=== PATIENT | female | born 1945 | race Two or more races ===

== ENCOUNTER 2018-02-23 23:03 | Inpatient (IN) | payer MEDICARE, OTHER ==
[~2018-02-23] VITALS: Ht 162.6 cm; Wt 98.9 kg
--- NOTE | 2018-02-23 23:25 | Emergency Room Report ---
History of Present Illness General Chief Complaint: Abnormal Labs Source: Medical Record, EMS Present Illness HPI This is a 72-year-old female coming from a halfway. She has multiple medical problem including tracheostomy and feeding tube. She presents with chief complaint of abnormal lab with elevated BUNs of 72. This is based on the lab done today. She has no complaint of fever chills but no nausea no vomiting. Per EMS, nursing staff said increasing edema to the upper hands. Patient is a DO NOT RESUSCITATE. Allergies: Coded Allergies: No Known Allergies (Unverified , 02/23/18) Patient History Past Medical History: see triage record, old chart reviewed Past Surgical History: other Social History: Denies: smoking Now: No Immunizations: other Reviewed Nursing Documentation: PMH: Agreed; PSxH: Agreed Nursing Documentation-PMH Past Medical History: No History, Except For Hx Hypertension: Yes Hx Diabetes: Yes - Type 2 Hx Gastrointestinal Problems: Yes - G-tube, Dysphagia History Of Psychiatric Problem: No - Cellulitis BUE, Sacral wound Hx Neurological Problems: Yes - Anoxic Brain Damage Hx Cerebrovascular Accident: Yes Hx Seizures: Yes Review of Systems Eye: Denies: eye pain, blurred vision ENT: Denies: ear pain, nose congestion, throat swelling Respiratory: Denies: cough, shortness of breath Cardiovascular: Denies: chest pain, palpitations Gastrointestinal: Denies: abdominal pain, diarrhea, nausea, vomiting Musculoskeletal: Denies: back pain, joint pain Skin: Denies: rash Neurological: Denies: headache, numbness Endocrine: Denies: increased thirst, increased urine Hematologic/Lymphatic: Denies: easy bruising All Other Systems: negative except mentioned in HPI Physical Exam Vital Signs Date Time Temp Pulse Resp B/P (MAP) Pulse Ox O2 Delivery O2 Flow Rate FiO2 02/23/18 23:07 68 17 133/68 98 Trach Collar 32 vitals unremarkable Sp02 EP Interpretation: reviewed, normal General Appearance: well appearing, no apparent distress, alert, obese Head: normocephalic, atraumatic Eyes: bilateral eye PERRL, bilateral eye EOMI ENT: hearing grossly normal, normal pharynx Neck: full range of motion, supple, no meningismus, tracheotomy Respiratory: chest non-tender, lungs clear, normal breath sounds Cardiovascular #1: regular rate, rhythm, no murmur Gastrointestinal: normal bowel sounds, non tender, no mass, no organomegaly, no bruit, non-distended Musculoskeletal: back normal, swelling - to bilateral hands. No warmth. Psychiatric: mood/affect normal Skin: warm/dry Medical Decision Making Diagnostic Impression: Primary Impression: Dehydration Additional Impressions: Prerenal azotemia UTI (urinary tract infection) Qualified Codes: N30.00 - Acute cystitis without hematuria Anemia Qualified Codes: D64.9 - Anemia, unspecified Proteinuria Qualified Codes: R80.9 - Proteinuria, unspecified ER Course Patient presents with abnormal lab with elevated BUN/creatinine ratio. No evidence of any bleeding. She looks dehydrated. Does have infection a urine an antibiotic started. Will admit for IV fluid and IV antibiotics. Lab Results Impression labs with elevated BUN EKG Diagnostic Results Rate: normal ST Segments: no acute changes Rhythm Strip Diag. Results Rhythm Strip Time: 01:18 EP Interpretation: yes Rate: 60 Rhythm: NSR, no PVC's, no ectopy Chest X-Ray Diagnostic Results Chest X-Ray Diagnostic Results : Chest X-Ray Ordered: Yes # of Views/Limited/Complete: 1 View Indication: Other EP Interpretation: Yes Interpretation: no consolidation, no effusion, no pneumothorax, no acute cardiopulmonary disease Impression: No acute disease Electronically Signed by: Joe Hutchinson MD Last Vital Signs Date Time Temp Pulse Resp B/P (MAP) Pulse Ox O2 Delivery O2 Flow Rate FiO2 02/23/18 23:07 68 17 133/68 98 Trach Collar 32 Status: improved Disposition: ADMITTED INPATIENT Condition: Serious JOE HUTCHINSON M.D. February 23, 2018 23:25
[2018-02-23 23:38] LABS: BASOPHILS % (AUTO) 1.1 % (0.0-2.0); EOSINOPHILS % (AUTO) 1.4 % (0.0-3.0); HEMATOCRIT 32.3 % (37.0-47.0); HEMOGLOBIN 11.2 G/DL (12.0-16.0); LYMPHOCYTES % (AUTO) 29.2 % (20.0-45.0); MEAN CORPUSCULAR VOLUME 93 FL (80-99); MONOCYTES % (AUTO) 5.4 % (1.0-10.0); NEUTROPHILS % (AUTO) 62.9 % (45.0-75.0); PLATELET COUNT 177 K/UL (150-450); RED BLOOD COUNT 3.48 M/UL (4.20-5.40); RED CELL DISTRIBUTION WIDTH 14.6 % (11.6-14.8); WHITE BLOOD COUNT 7.8 K/UL (4.8-10.8)
[2018-02-23 23:49] LABS: ANION GAP 9 mmol/L (5-15); BLOOD UREA NITROGEN 81 mg/dL (7-18); CARBON DIOXIDE 30 MMOL/L (21-32); CHLORIDE 96 MMOL/L (98-107); CREATININE 1.3 MG/DL (0.55-1.30); POTASSIUM 3.5 MMOL/L (3.5-5.1); SODIUM 135 MMOL/L (136-145)
[2018-02-23 23:52] LABS: APPEARANCE,URINE SLIGHTLY CLOUDY; BILIRUBIN, URINE NEGATIVE (NEGATIVE); COLOR,URINE YELLOW; GLUCOSE, URINE (UA) NEGATIVE (NEGATIVE); KETONES,URINE NEGATIVE (NEGATIVE); LEUKOCYTE ESTERASE ,URINE 3+ (NEGATIVE); NITRITE,URINE NEGATIVE (NEGATIVE); PROTEIN,URINE 2+ (NEGATIVE); UROBILINOGEN,URINE NORMAL MG/DL (0.0-1.0)
[2018-02-23 23:54] LABS: PH,URINE 8 (4.5-8.0)
[2018-02-23 23:54] LABS: ALANINE AMINOTRANSFERASE 19 U/L (12-78); ALBUMIN 2.1 G/DL (3.4-5.0); ALBUMIN/GLOBULIN RATIO 0.4 (1.0-2.7); ALKALINE PHOSPHATASE 207 U/L (46-116); ASPARTATE AMINO TRANSFERASE 37 U/L (15-37); BILIRUBIN,TOTAL 0.3 MG/DL (0.2-1.0)
[2018-02-24] VITALS (8 sets, daily range): BP systolic 102–159; BP diastolic 54–109
[2018-02-24] MEDS ORDERED: NOVOLOG100 UNIT/3 SUBQ (00:02)
[2018-02-24] MEDS ORDERED: CRANBERRY450 M3 GT (00:02)
[2018-02-24] MEDS ORDERED: MULTIVITAMINS1 EAC2 GT (00:02)
[2018-02-24] MEDS ORDERED: BISACODYL5 MG RECTAL (00:02)
[2018-02-24] MEDS ORDERED: BENADRYL25 MG GT (00:02)
[2018-02-24] MEDS ORDERED: KEPPRA1000 MG GT (00:02)
[2018-02-24] MEDS ORDERED: IPRATROPIU0.2 MG/1 M HHN (00:02)
[2018-02-24] MEDS ORDERED: FLEET ENEMA133 ML RECTAL (00:02)
[2018-02-24] MEDS ORDERED: FERROUS SULFAT325 MG GT (00:02)
[2018-02-24] MEDS ORDERED: GLUCAGEN1 M1 IJ (00:02)
[2018-02-24] MEDS ORDERED: EPOGEN2000 UNIT/ SUBQ (00:02)
[2018-02-24] MEDS ORDERED: ZOFRAN4 M3 GT (00:02)
[2018-02-24] MEDS ORDERED: VALPROIC A250 MG/5 M GT (00:02)
[2018-02-24] MEDS ORDERED: LEVEMIR FL100 UNIT/1 SUBQ (00:02)
[2018-02-24] MEDS ORDERED: MILK OF MA400 MG/51 GT (00:02)
[2018-02-24] MEDS ORDERED: ACETAMINOP160 MG/5 M GT (00:02)
[2018-02-24] MEDS ORDERED: VITAMIN C500 MG/11 GT (00:02)
--- NOTE | 2018-02-24 00:27 | Diagnostic Imaging Report ---
EXAM: XR Chest, 1 View CLINICAL HISTORY: SOB TECHNIQUE: Frontal view of the chest. COMPARISON: No relevant prior studies available. FINDINGS/IMPRESSION: Tracheostomy. Patient rotated. Heart size likely within normal limits given technique. Lung base opacities. Likely atelectasis. Correlate for small amount of basilar infiltrate.
[2018-02-24] MEDS ORDERED: cefTRIAXone 1 GM in NS 55 ML IVPB ONE (00:30)
[2018-02-24] MEDS ORDERED: Valproic Acid 250mg/5ml Liquid NG SCH (06:00)
[2018-02-24] MEDS ORDERED: Acetaminophen 650mg/20.3ml GT PRN (08:00)
[2018-02-24] MEDS ORDERED: Fleet's Enema 133ml RECTAL PRN (08:00)
[2018-02-24] MEDS ORDERED: DiphenhydrAMINE 25mg/10ml Elixir GT PRN (08:00)
[2018-02-24] MEDS ORDERED: Milk of Magnesia 30ml Ud ORAL PRN (08:00)
[2018-02-24] MEDS ORDERED: Vancomycin 1500mg IVPB ONE (08:30)
[2018-02-24] MEDS ORDERED: Piperacillin/Tazobactam 3.375 GM in D5W 110 ML IVPB SCH (08:30)
[2018-02-24] MEDS: D5NS 1,000 ML IV SCH ×2 (08:33→21:05)
[2018-02-24 08:35] LABS: BASOPHILS % (AUTO) 1.1 % (0.0-2.0); EOSINOPHILS % (AUTO) 1.4 % (0.0-3.0); HEMATOCRIT 33.4 % (37.0-47.0); HEMOGLOBIN 11.1 G/DL (12.0-16.0); LYMPHOCYTES % (AUTO) 28.7 % (20.0-45.0); MEAN CORPUSCULAR VOLUME 93 FL (80-99); MONOCYTES % (AUTO) 7.2 % (1.0-10.0); NEUTROPHILS % (AUTO) 61.5 % (45.0-75.0); PLATELET COUNT 183 K/UL (150-450); RED BLOOD COUNT 3.59 M/UL (4.20-5.40); RED CELL DISTRIBUTION WIDTH 14.5 % (11.6-14.8); WHITE BLOOD COUNT 7.1 K/UL (4.8-10.8)
[2018-02-24 08:42] LABS: ANION GAP 9 mmol/L (5-15); BLOOD UREA NITROGEN 72 mg/dL (7-18); CALCIUM 9.8 MG/DL (8.5-10.1); CARBON DIOXIDE 29 MMOL/L (21-32); CHLORIDE 103 MMOL/L (98-107); CREATININE 1.1 MG/DL (0.55-1.30); POTASSIUM 3.5 MMOL/L (3.5-5.1); SODIUM 141 MMOL/L (136-145)
[2018-02-24] MEDS ORDERED: Ferrous Sulfate 300 MG/5 ML UDC NG SCH (09:00)
[2018-02-24] MEDS ORDERED: Ascorbic Acid 500mg tab GT SCH (09:00)
[2018-02-24] MEDS ORDERED: Heparin 5000 units/ml inj SUBQ SCH (09:00)
[2018-02-24] MEDS: Piperacillin/Tazobactam 3.375 GM in D5W 110 ML IVPB SCH ×2 (09:58→17:09)
--- NOTE | 2018-02-24 10:24 | Consultation ---
Consult Note Consult Note 72-year-old female coming [facility] a [facility] for worsening renal function. She has multiple medical problem including tracheostomy and feeding tube and has worsening edema and renal function and unable to manage at the SNF. She presents with worsening renal function. She is unable to give any history and chronically bed bound. Per EMS, nursing staff said increasing edema and erythema to the upper hands. Allergies: No Known Allergies (Unverified , 02/23/18) Past Medical History: respiratory failure, aspiration, cellulitis, renal failure, sacral wound, anoxia, CVA, diabetes, htn, seizures Past Surgical History: trach, GT Social History: SNF patient, bed bound Reviewed of systems: unable Physical WDWN NAD reduced breath sounds bilaterally without rhonchi or wheeze [id number] without MRG NABS nontender no HSM; GT no CC diffuse edema and erythema nonfocal, moribound trach Laboratory Tests Test 02/23/18 23:35 02/23/18 23:41 02/24/18 00:06 02/24/18 08:26 White Blood Count 7.8 K/UL (4.8-10.8) 7.1 K/UL (4.8-10.8) Red Blood Count 3.48 M/UL (4.20-5.40) L 3.59 M/UL (4.20-5.40) L Hemoglobin 11.2 G/DL (12.0-16.0) L 11.1 G/DL (12.0-16.0) L Hematocrit 32.3 % (37.0-47.0) L 33.4 % (37.0-47.0) L Mean Corpuscular Volume 93 FL (80-99) 93 FL (80-99) Mean Corpuscular Hemoglobin 32.3 PG (27.0-31.0) H 30.8 PG (27.0-31.0) Mean Corpuscular Hemoglobin Concent 34.8 G/DL (32.0-36.0) 33.1 G/DL (32.0-36.0) Red Cell Distribution Width 14.6 % (11.6-14.8) 14.5 % (11.6-14.8) Platelet Count 177 K/UL (150-450) 183 K/UL (150-450) Mean Platelet Volume 6.5 FL (6.5-10.1) 6.3 FL (6.5-10.1) L Neutrophils (%) (Auto) 62.9 % (45.0-75.0) 61.5 % (45.0-75.0) Lymphocytes (%) (Auto) 29.2 % (20.0-45.0) 28.7 % (20.0-45.0) Monocytes (%) (Auto) 5.4 % (1.0-10.0) 7.2 % (1.0-10.0) Eosinophils (%) (Auto) 1.4 % (0.0-3.0) 1.4 % (0.0-3.0) Basophils (%) (Auto) 1.1 % (0.0-2.0) 1.1 % (0.0-2.0) Sodium Level 135 MMOL/L (136-145) L 141 MMOL/L (136-145) Potassium Level 3.5 MMOL/L (3.5-5.1) 3.5 MMOL/L (3.5-5.1) Chloride Level 96 MMOL/L (98-107) L 103 MMOL/L (98-107) Carbon Dioxide Level 30 MMOL/L (21-32) 29 MMOL/L (21-32) Anion Gap 9 mmol/L (5-15) 9 mmol/L (5-15) Blood Urea Nitrogen 81 mg/dL (7-18) H 72 mg/dL (7-18) H Creatinine 1.3 MG/DL (0.55-1.30) 1.1 MG/DL (0.55-1.30) Estimat Glomerular Filtration Rate 40.5 mL/min (>60) 49.1 mL/min (>60) Glucose Level 187 MG/DL (74-106) H 84 MG/DL (74-106) # Lactic Acid Level 2.00 mmol/L (0.66-2.22) 1.60 mmol/L (0.66-2.22) Calcium Level 10.0 MG/DL (8.5-10.1) 9.8 MG/DL (8.5-10.1) Total Bilirubin 0.3 MG/DL (0.2-1.0) Aspartate Amino Transf (AST/SGOT) 37 U/L (15-37) Alanine Aminotransferase (ALT/SGPT) 19 U/L (12-78) Alkaline Phosphatase 207 U/L (46-116) H Troponin I 0.000 ng/mL (0.000-0.056) Total Protein 7.6 G/DL (6.4-8.2) Albumin 2.1 G/DL (3.4-5.0) L Globulin 5.5 g/dL Albumin/Globulin Ratio 0.4 (1.0-2.7) L Urine Color Yellow Urine Appearance Slightly cloudy Urine pH 8 (4.5-8.0) Urine Specific Lafe 1.010 (1.005-1.035) Urine Protein 2+ (NEGATIVE) H Urine Glucose (UA) Negative (NEGATIVE) Urine Ketones Negative (NEGATIVE) Urine Occult Blood 4+ (NEGATIVE) H Urine Nitrite Negative (NEGATIVE) Urine Bilirubin Negative (NEGATIVE) Urine Urobilinogen Normal MG/DL (0.0-1.0) Urine Leukocyte Esterase 3+ (NEGATIVE) H Urine RBC 20-30 /HPF (0 - 2) H Urine WBC 20-30 /HPF (0 - 2) H Urine Squamous Epithelial Cells Few /LPF (NONE/OCC) Urine Amorphous Sediment Moderate /LPF (NONE) H Urine Bacteria Many /HPF (NONE) H Thyroid Stimulating Hormone (TSH) 6.517 uiU/mL (0.358-3.740) IMPRESSION respiratory failure diffuse edema renal failure cellulitis possible chronic encephalopathy trach gt PLAN vent as is resume meds renal evaluation manage fluid status skin care wound care nutrition protein supplementation impression, plan, and exam edited and reviewed in detail care discussed with Edinson Lyon MD February 24, 2018 10:24
--- NOTE | 2018-02-24 10:37 | Diagnostic Imaging Report ---
INDICATION: Increased BUN TECHNIQUE: Real time imaging of the kidneys is performed in sagittal and transverse projections. COMPARISON: None FINDINGS: The right kidney measures 9.2 cm, the left kidney is not seen. There is no evidence of hydronephrosis or solid mass lesions. No sonographic evidence of renal calculi. Pichardo catheter in place. IMPRESSION: Left kidney not seen, the right kidney is within normal. Pichardo catheter in place.
[2018-02-24] MEDS: NovoLOG Insulin Flexpen SUBQ SCH ×2 (11:30→16:30)
[2018-02-24] MEDS: Valproic Acid 250mg/5ml Liquid NG SCH ×2 (14:14→21:09)
--- NOTE | 2018-02-24 15:00 | History and Physical Report ---
DATE OF ADMISSION: 02/24/2018 CHIEF COMPLAINT: Abnormal laboratories. HISTORY OF PRESENT ILLNESS: The patient is an unfortunate 72-year-old female who has a history of chronic respiratory failure, toxic encephalopathy, and hypertension. She has a history of a chronic trach and a G-tube. She was transferred from a shelter facility with abnormal laboratories. Specifically, she has had an elevated BUN. On evaluation in the emergency room, her BUN was confirmed at 81. She also had evidence of urinary tract infection. She has been pancultured. She has been started on antibiotic therapy. She is now admitted for further evaluation and care. She is nonverbal at baseline. She is unable to provide any history. PAST MEDICAL HISTORY: As above. History of chronic kidney disease, seizure disorder. PAST SURGICAL HISTORY: Includes trach and a G-tube. CURRENT MEDICATIONS: Reconciled and reviewed. ALLERGIES: None. FAMILY HISTORY: None. SOCIAL HISTORY: There is no known history of tobacco, ethanol, or drugs. REVIEW OF SYSTEMS: Unobtainable. PHYSICAL EXAMINATION: VITAL SIGNS: Temperature 94.6, pulse 59, respirations 16, and blood pressure 102/54. GENERAL: The patient is a chronically ill-appearing female, in no apparent distress. She is nonverbal, does not follow commands. NECK: Supple. Trach site was clean and midline. HEART: Regular rate and rhythm. LUNGS: Clear. ABDOMEN: Soft, nontender, nondistended. EXTREMITIES: Without clubbing, cyanosis, or edema. LABORATORY DATA: Sodium 135, BUN 81, creatinine is 1.3, potassium 3.5. White count 8, hemoglobin 11, hematocrit 32, platelets 177,000. UA showed 20 to 30 WBCs with 3+ leukocyte esterase positive. Many bacteria. ASSESSMENT: This is a unfortunate female with history of anoxic encephalopathy, chronic respiratory failure, seizure disorder, chronic kidney disease, admitted with complaints of sepsis and azotemia. 1. Sepsis. 2. Azotemia. 3. Urinary tract infection. 4. Toxic encephalopathy. 5. History of seizure disorder. 6. Hypertension. PLAN: 1. IV hydration. 2. Continue outpatient medications. 3. Antibiotics for urinary tract infection. 4. Follow up pending cultures. 5. Continue vent support. 6. Respiratory treatments. 7. Continue G-tube feeds. Glynn King M.D. DR: AMMON JOB#: [id number] CC:
[2018-02-24] MEDS: Ferrous Sulfate 300 MG/5 ML UDC NG SCH (17:10)
--- NOTE | 2018-02-24 18:00 | Consultation ---
DATE OF CONSULTATION: 02/24/2018 CONSULTING PHYSICIAN: Harpal Pan M.D. REFERRING PHYSICIAN: Edinson Barton M.D. REASON FOR CONSULTATION: 1. Acute kidney injury. 2. Edema. HISTORY OF PRESENT ILLNESS: The patient is a 72-year-old, female, who is currently ventilatory dependent. She has undergone a previous tracheostomy and is dependent on mechanical ventilation. The patient also has a feeding tube. She was sent from her intermediate facility for evaluation and management of upper extremity edema and worsening renal function. Upon presentation, the patient had a creatinine of 1.3 with a BUN of 81. IV fluids were initiated. BUN has improved down to 71 with a creatinine of 1.1. The patient is nonverbal and no apparent distress. ALLERGIES: No known drug allergies. PAST MEDICAL HISTORY: 1. Respiratory failure, ventilatory-dependent. 2. Aspiration. 3. Cellulitis. 4. History of acute kidney injury. 5. Sacral wound. 6. Anoxia. 7. CVA. 8. Diabetes mellitus. 9. Hypertension. 10. Seizures. PAST SURGICAL HISTORY: 1. Tracheostomy. 2. G-tube. SOCIAL HISTORY: The patient is a intermediate facility resident and she is bedbound. No tobacco, alcohol or illicit drug use. FAMILY HISTORY: Noncontributory. REVIEW OF SYSTEMS: Cannot be obtained, as the patient is currently mechanical ventilatory dependent and nonverbal. PHYSICAL EXAM: GENERAL: The patient is awake, in no apparent distress. HEENT: Extraocular muscles intact. No lymphadenopathy noted. CARDIOVASCULAR: S1 and S2. No rubs or gallops. PULMONARY: Mild upper airway rhonchi. Fair air movement all lung ventura. ABDOMEN: Obese and nondistended with PEG tube noted. EXTREMITIES: 4+ pitting edema in right and left upper extremity with 1+ edema in the lower extremities. LABORATORY AND DIAGNOSTIC DATA: Labs dated 02/24/2018, sodium 141, potassium 3.5, BUN 72, and creatinine 1.1. Calcium 9.8. Albumin of 2.1. TSH 6.57. Hemoglobin 11.1, white cell count 7.1, and platelet count 183. ASSESSMENT AND PLAN: 1. Acute kidney injury, at this time most likely secondary to component of intravascular volume depletion. Agree with hydration, as BUN and creatinine have already improved. Renal ultrasound demonstrates no acute obstruction, however, left kidney was not seen and the right kidney was within normal limits. At this time with improvement in renal function, creatinine down to 1.1. Continue intravenous hydration. No further renal investigations required. 2. Edema/anasarca. At this time secondary to low oncotic pressure from low serum albumin 2.1. I have discussed with nurse starting high-protein enteric tube feeds. Nephro-Bobby 40 mL an hour. Dietary evaluation pending. 3. Respiratory failure. The patient has tracheostomy and is ventilatory dependent. Defer management to Pulmonary. Harpal Pan MD DR: BELINDA JOB#: [id number] CC:
[2018-02-24] MEDS: Heparin 5000 units/ml inj SUBQ SCH (21:09)
[2018-02-24] MEDS: Levemir Flexpen SUBQ SCH (21:13)
[2018-02-25] VITALS: BP 136/62
[2018-02-25] MEDS: NovoLOG Insulin Flexpen SUBQ SCH ×5 (00:01→23:52)
[2018-02-25] MEDS: Piperacillin/Tazobactam 3.375 GM in D5W 110 ML IVPB SCH ×3 (00:51→17:13)
[2018-02-25 04:00] VITALS: BP 153/76
[2018-02-25] MEDS: Valproic Acid 250mg/5ml Liquid NG SCH ×3 (06:02→21:32)
--- NOTE | 2018-02-25 07:23 | Pulmonology Progress Note ---
Assessment/Plan Assessment/Plan IMPRESSION respiratory failure diffuse edema renal failure cellulitis possible chronic encephalopathy trach gt solitary kidney possible UTI PLAN vent as is maintain meds renal evaluation noted manage fluid status skin care iv antibiotics pending cultures wound care nutrition protein supplementation impression, plan, and exam edited and reviewed in detail care discussed with RN Subjective ROS Limited/Unobtainable: Yes Allergies: Coded Allergies: No Known Allergies (Unverified , 02/23/18) Subjective all appreciated and reviewed on vent still with edema Objective Last 24 Hour Vital Signs Date Time Temp Pulse Resp B/P (MAP) Pulse Ox O2 Delivery O2 Flow Rate FiO2 02/25/18 07:17 75 16 30 02/25/18 05:15 61 18 30 02/25/18 04:00 71 02/25/18 04:00 96.4 61 16 153/76 99 Mechanical Ventilator 30 96.4 02/25/18 04:00 30 02/25/18 03:28 62 18 30 02/25/18 00:57 63 18 30 02/25/18 00:00 30 02/25/18 00:00 96.5 63 17 136/62 100 Mechanical Ventilator 30 96.5 02/25/18 00:00 56 02/24/18 22:54 66 16 30 02/24/18 21:00 67 16 30 02/24/18 20:00 30 02/24/18 20:00 59 02/24/18 20:00 96.1 59 17 148/65 100 Mechanical Ventilator 30 96.1 02/24/18 19:05 65 16 30 02/24/18 16:49 67 16 30 02/24/18 16:11 95.7 65 20 159/109 100 Mechanical Ventilator 30 95.7 02/24/18 16:00 57 02/24/18 16:00 30 02/24/18 14:34 51 16 30 02/24/18 12:56 57 16 30 02/24/18 12:00 30 02/24/18 12:00 59 02/24/18 12:00 92.0 69 17 138/81 100 Mechanical Ventilator 30 92.0 02/24/18 11:07 58 16 30 02/24/18 09:14 70 19 30 02/24/18 08:00 62 02/24/18 08:00 30 02/24/18 08:00 97.7 73 17 159/72 100 Mechanical Ventilator 30 97.7 Intake and Output 02/24/18 02/25/18 19:00 07:00 Intake Total 905.0 ml 1340.0 ml Output Total 900 ml 550 ml Balance 5.0 ml 790.0 ml Intake Free Water 180 ml 60 ml IV Total 605.0 ml 840.0 ml Tube Feeding 120 ml 440 ml Output Urine Total 900 ml 550 ml # Bowel Movements 2 2 Objective WDWN trach poor LOC reduced breath sounds bilaterally without rhonchi or wheeze [id number] without MRG NABS nontender no HSM no CC anasarca GT nonfocal Microbiology Date/Time Source Procedure Growth Status 02/23/18 23:23 Blood Blood Culture - Preliminary NO GROWTH AFTER 24 HOURS Resulted 02/23/18 23:23 Blood Blood Culture - Preliminary NO GROWTH AFTER 24 HOURS Resulted 02/23/18 23:41 Urine,Clean Catch Urine Culture - Preliminary Gram Negative Garrison Resulted 02/24/18 05:20 Sacral Wound Gram Stain - Final Resulted 02/24/18 05:20 Sacral Wound Wound Culture Pending Resulted Laboratory Tests 02/24/18 08:26: White Blood Count 7.1, Red Blood Count 3.59L, Hemoglobin 11.1L, Hematocrit 33.4L , Mean Corpuscular Volume 93, Mean Corpuscular Hemoglobin 30.8, Mean Corpuscular Hemoglobin Concent 33.1, Red Cell Distribution Width 14.5, Platelet Count 183, Mean Platelet Volume 6.3L, Neutrophils (%) (Auto) 61.5, Lymphocytes ( %) (Auto) 28.7, Monocytes (%) (Auto) 7.2, Eosinophils (%) (Auto) 1.4, Basophils (%) (Auto) 1.1, Sodium Level 141, Potassium Level 3.5, Chloride Level 103, Carbon Dioxide Level 29, Anion Gap 9, Blood Urea Nitrogen 72H, Creatinine 1.1, Estimat Glomerular Filtration Rate 49.1, Glucose Level 84#, Calcium Level 9.8, Thyroid Stimulating Hormone (TSH) 6.517H Current Medications Medications (Trade) Dose Ordered Sig/Aashish Route PRN Reason Start Time Stop Time Status Last Admin Dose Admin Acetaminophen (Tylenol) 650 mg Q4H PRN GT Mild Pain/Temp > 100.5 02/24/18 08:00 03/26/18 07:59 Ascorbic Acid (Vitamin C) 500 mg DAILY GT 02/25/18 09:00 03/26/18 08:59 Bisacodyl (Dulcolax) 10 mg DAILYPRN PRN RECTAL Constipation 02/24/18 08:00 03/26/18 07:59 Dextrose (Dextrose 50%) 25 ml STAT PRN IV Hypoglycemia 02/24/18 07:45 03/26/18 07:44 Dextrose (Dextrose 50%) 50 ml STAT PRN IV Hypoglycemia 02/24/18 07:45 03/26/18 07:44 02/25/18 06:05 Dextrose/Sodium Chloride 1,000 ml @ 75 mls/hr [id number] IV 02/24/18 07:45 03/26/18 07:44 02/24/18 08:33 Diphenhydramine HCl (Benadryl) 25 mg Q4HR PRN GT Itching 02/24/18 08:00 03/26/18 07:59 Ferrous Sulfate (Feosol) 330 mg BID NG 02/24/18 18:00 03/26/18 17:59 02/24/18 17:10 Heparin Sodium (Porcine) (Heparin 5000 units/ml) 5,000 units EVERY 12 HOURS SUBQ 02/24/18 21:00 03/26/18 20:59 02/24/18 21:09 Insulin Aspart (NovoLOG) Q6HR SUBQ 02/25/18 00:00 03/26/18 11:29 02/25/18 00:01 Insulin Detemir (Levemir) 12 units BEDTIME SUBQ 02/24/18 21:00 03/26/18 20:59 02/24/18 21:13 Levetiracetam (Keppra) 1,000 mg BID GT 02/24/18 18:00 03/26/18 17:59 02/24/18 17:10 Magnesium Hydroxide (Mom) 30 ml DAILYPRN PRN ORAL Constipation 02/24/18 08:00 03/26/18 07:59 Ondansetron HCl (Zofran) 4 mg Q6H PRN GT Nausea & Vomiting 02/24/18 08:00 03/26/18 07:59 Piperacillin Sod/ Tazobactam Sod 3.375 gm/Dextrose 110 ml @ 27.5 mls/hr Q8H IVPB 02/24/18 09:30 03/03/18 09:29 02/25/18 00:51 Sodium Phosphate (Fleet's Sodium Phosl Enema) 133 ml DAILY PRN RECTAL Constipation 02/24/18 08:00 03/26/18 07:59 Valproic Acid (Depakene) 750 mg Q8HR NG 02/24/18 14:00 03/26/18 13:59 02/25/18 06:02 Vancomycin HCl (Vanco rx to dose) 1 ea DAILY PRN MISC Per rx protocol 02/24/18 07:45 03/26/18 07:44 Vancomycin HCl/ Dextrose 250 ml @ 125 mls/hr Q24H IVPB 02/25/18 09:00 03/02/18 08:59 Edinson Barton MD February 25, 2018 07:23
--- NOTE | 2018-02-25 07:58 | General Progress Note ---
Assessment/Plan Problem List: (1) Sepsis ICD Codes: A41.9 - Sepsis, unspecified organism SNOMED: 77717843 (2) Encephalopathy ICD Codes: G93.40 - Encephalopathy, unspecified SNOMED: 83050950 (3) Functional quadriplegia ICD Codes: R53.2 - Functional quadriplegia SNOMED: 480291109077514 (4) Prerenal azotemia ICD Codes: R79.89 - Other specified abnormal findings of blood chemistry SNOMED: 721678114 (5) Anemia ICD Codes: D64.9 - Anemia, unspecified SNOMED: 896140956 Qualifiers: Qualified Codes: D64.9 - Anemia, unspecified (6) Proteinuria ICD Codes: R80.9 - Proteinuria, unspecified SNOMED: 99203197 Qualifiers: Qualified Codes: R80.9 - Proteinuria, unspecified (7) Dehydration ICD Codes: E86.0 - Dehydration SNOMED: 44839209 (8) UTI (urinary tract infection) ICD Codes: N39.0 - Urinary tract infection, site not specified SNOMED: 52799460 Qualifiers: Qualified Codes: N30.00 - Acute cystitis without hematuria Status: stable Assessment/Plan iv abx follow up cultures vent resp rx gt feeds sz rx thyroid replacement. Subjective ROS Limited/Unobtainable: Yes Constitutional: Reports: malaise, weakness HEENT: Reports: no symptoms Cardiovascular: Reports: no symptoms Respiratory: Reports: shortness of breath, sputum Gastrointestinal/Abdominal: Reports: difficulty swallowing Genitourinary: Reports: no symptoms Neurologic/Psychiatric: Reports: pre-existing deficit, seizure Endocrine: Reports: no symptoms Hematologic/Lymphatic: Reports: anemia Allergies: Coded Allergies: No Known Allergies (Unverified , 02/23/18) All Systems: reviewed and negative except above Subjective no events. nonverbal at baseline. no fevers. tolerating feeds. labs noted. Objective Last 24 Hour Vital Signs Date Time Temp Pulse Resp B/P (MAP) Pulse Ox O2 Delivery O2 Flow Rate FiO2 02/25/18 07:17 75 16 30 02/25/18 05:15 61 18 30 02/25/18 04:00 71 02/25/18 04:00 96.4 61 16 153/76 99 Mechanical Ventilator 30 96.4 02/25/18 04:00 30 02/25/18 03:28 62 18 30 02/25/18 00:57 63 18 30 02/25/18 00:00 30 02/25/18 00:00 96.5 63 17 136/62 100 Mechanical Ventilator 30 96.5 02/25/18 00:00 56 02/24/18 22:54 66 16 30 02/24/18 21:00 67 16 30 02/24/18 20:00 30 02/24/18 20:00 59 02/24/18 20:00 96.1 59 17 148/65 100 Mechanical Ventilator 30 96.1 02/24/18 19:05 65 16 30 02/24/18 16:49 67 16 30 02/24/18 16:11 95.7 65 20 159/109 100 Mechanical Ventilator 30 95.7 02/24/18 16:00 57 02/24/18 16:00 30 02/24/18 14:34 51 16 30 02/24/18 12:56 57 16 30 02/24/18 12:00 30 02/24/18 12:00 59 02/24/18 12:00 92.0 69 17 138/81 100 Mechanical Ventilator 30 92.0 02/24/18 11:07 58 16 30 02/24/18 09:14 70 19 30 02/24/18 08:00 62 02/24/18 08:00 30 02/24/18 08:00 97.7 73 17 159/72 100 Mechanical Ventilator 30 97.7 Intake and Output 02/24/18 02/25/18 19:00 07:00 Intake Total 905.0 ml 1415.0 ml Output Total 900 ml 550 ml Balance 5.0 ml 865.0 ml Intake Free Water 180 ml 60 ml IV Total 605.0 ml 915.0 ml Tube Feeding 120 ml 440 ml Output Urine Total 900 ml 550 ml # Bowel Movements 2 2 Laboratory Tests 02/24/18 08:26: White Blood Count 7.1, Red Blood Count 3.59L, Hemoglobin 11.1L, Hematocrit 33.4L , Mean Corpuscular Volume 93, Mean Corpuscular Hemoglobin 30.8, Mean Corpuscular Hemoglobin Concent 33.1, Red Cell Distribution Width 14.5, Platelet Count 183, Mean Platelet Volume 6.3L, Neutrophils (%) (Auto) 61.5, Lymphocytes ( %) (Auto) 28.7, Monocytes (%) (Auto) 7.2, Eosinophils (%) (Auto) 1.4, Basophils (%) (Auto) 1.1, Sodium Level 141, Potassium Level 3.5, Chloride Level 103, Carbon Dioxide Level 29, Anion Gap 9, Blood Urea Nitrogen 72H, Creatinine 1.1, Estimat Glomerular Filtration Rate 49.1, Glucose Level 84#, Calcium Level 9.8, Thyroid Stimulating Hormone (TSH) 6.517H Height (Feet): 5 Height (Inches): 4.00 Weight (Pounds): 228 General Appearance: WD/WN, lethargic, confused Neck: normal alignment Cardiovascular: normal peripheral pulses, normal rate, regular rhythm Respiratory/Chest: chest wall non-tender, lungs clear, normal breath sounds Abdomen: normal bowel sounds, non tender, soft, no organomegaly Edema: mild edema Neurologic: unresponsive, aphasia DIPAK OCONNELL February 25, 2018 07:58
[2018-02-25 08:00] VITALS: BP 127/75
[2018-02-25] MEDS: Ascorbic Acid 500mg tab GT SCH (08:40)
[2018-02-25] MEDS: Ferrous Sulfate 300 MG/5 ML UDC NG SCH ×2 (08:40→17:13)
[2018-02-25] MEDS: Vancomycin 1500mg IVPB SCH (08:40)
[2018-02-25] MEDS: Heparin 5000 units/ml inj SUBQ SCH ×2 (08:42→20:15)
--- NOTE | 2018-02-25 08:51 | Nephrology Progress Note ---
Assessment/Plan Assessment/Plan 1. AMEE- resolved, Cr yesterday back to 1.1 - am labs pending. Avoid Nephrotoxins 2. Anasarca- dependant edema - due to immobilization and low oncotic pressure from hypoalbuminemia - Alb 2.1, high protein Nephro TF's started 3. Resp FL- chronic, trached on vent 4. Elevated BUN- secondary intravasc volume depletion, BUN had improved with hydration - AM labs pending Subjective Date patient seen: February 25, 2018 Time patient seen: 08:44 ROS Limited/Unobtainable: Yes Allergies: Coded Allergies: No Known Allergies (Unverified , 02/23/18) Subjective Patient trached on vent. In no apparent distress Objective Last 24 Hour Vital Signs Date Time Temp Pulse Resp B/P (MAP) Pulse Ox O2 Delivery O2 Flow Rate FiO2 02/25/18 07:17 75 16 30 02/25/18 05:15 61 18 30 02/25/18 04:00 71 02/25/18 04:00 96.4 61 16 153/76 99 Mechanical Ventilator 30 96.4 02/25/18 04:00 30 02/25/18 03:28 62 18 30 02/25/18 00:57 63 18 30 02/25/18 00:00 30 02/25/18 00:00 96.5 63 17 136/62 100 Mechanical Ventilator 30 96.5 02/25/18 00:00 56 02/24/18 22:54 66 16 30 02/24/18 21:00 67 16 30 02/24/18 20:00 30 02/24/18 20:00 59 02/24/18 20:00 96.1 59 17 148/65 100 Mechanical Ventilator 30 96.1 02/24/18 19:05 65 16 30 02/24/18 16:49 67 16 30 02/24/18 16:11 95.7 65 20 159/109 100 Mechanical Ventilator 30 95.7 02/24/18 16:00 57 02/24/18 16:00 30 02/24/18 14:34 51 16 30 02/24/18 12:56 57 16 30 02/24/18 12:00 30 02/24/18 12:00 59 02/24/18 12:00 92.0 69 17 138/81 100 Mechanical Ventilator 30 92.0 02/24/18 11:07 58 16 30 02/24/18 09:14 70 19 30 Intake and Output 02/24/18 02/25/18 19:00 07:00 Intake Total 905.0 ml 1415.0 ml Output Total 900 ml 550 ml Balance 5.0 ml 865.0 ml Intake Free Water 180 ml 60 ml IV Total 605.0 ml 915.0 ml Tube Feeding 120 ml 440 ml Output Urine Total 900 ml 550 ml # Bowel Movements 2 2 Height (Feet): 5 Height (Inches): 4.00 Weight (Pounds): 228 General Appearance: WD/WN, no apparent distress EENT: PERRL/EOMI, normal ENT inspection Neck: non-tender, normal alignment Cardiovascular: normal rate, regular rhythm Respiratory/Chest: chest wall non-tender, lungs clear Abdomen: normal bowel sounds, non tender Edema: 3+ Arm (L), 3+ Arm (R); no edema noted Leg (L), no edema noted Leg (R); 2+ Generalized Harpal Pan M.D. February 25, 2018 08:51
[2018-02-25] MEDS: D5NS 1,000 ML IV SCH ×2 (10:25→23:47)
[2018-02-25 11:29] LABS: ANION GAP 11 mmol/L (5-15); BLOOD UREA NITROGEN 54 mg/dL (7-18); CALCIUM 9.2 MG/DL (8.5-10.1); CARBON DIOXIDE 26 MMOL/L (21-32); CHLORIDE 104 MMOL/L (98-107); CREATININE 1.1 MG/DL (0.55-1.30); POTASSIUM 3.1 MMOL/L (3.5-5.1); SODIUM 140 MMOL/L (136-145)
[2018-02-25 12:00] VITALS: BP 120/45
[2018-02-25 16:00] VITALS: BP 127/75
[2018-02-25 20:00] VITALS: BP 135/73
[2018-02-25] MEDS: Levemir Flexpen SUBQ SCH (20:15)
[2018-02-25] MEDS ORDERED: Tubing IV Secondary IV ONE (20:17)
[2018-02-26] VITALS: BP 151/59
[2018-02-26] MEDS: Piperacillin/Tazobactam 3.375 GM in D5W 110 ML IVPB SCH ×2 (01:30→09:26)
[2018-02-26 04:00] VITALS: BP 147/61
[2018-02-26] MEDS: Valproic Acid 250mg/5ml Liquid NG SCH ×3 (05:49→22:20)
[2018-02-26] MEDS: NovoLOG Insulin Flexpen SUBQ SCH ×3 (05:50→17:52)
--- NOTE | 2018-02-26 07:56 | General Progress Note ---
Assessment/Plan Problem List: (1) Sepsis ICD Codes: A41.9 - Sepsis, unspecified organism SNOMED: 87294996 (2) Encephalopathy ICD Codes: G93.40 - Encephalopathy, unspecified SNOMED: 70997546 (3) Functional quadriplegia ICD Codes: R53.2 - Functional quadriplegia SNOMED: 535061021554024 (4) Prerenal azotemia ICD Codes: R79.89 - Other specified abnormal findings of blood chemistry SNOMED: 071819804 (5) Anemia ICD Codes: D64.9 - Anemia, unspecified SNOMED: 701145042 Qualifiers: Qualified Codes: D64.9 - Anemia, unspecified (6) Proteinuria ICD Codes: R80.9 - Proteinuria, unspecified SNOMED: 38069773 Qualifiers: Qualified Codes: R80.9 - Proteinuria, unspecified (7) Dehydration ICD Codes: E86.0 - Dehydration SNOMED: 77828179 (8) UTI (urinary tract infection) ICD Codes: N39.0 - Urinary tract infection, site not specified SNOMED: 02672847 Qualifiers: Qualified Codes: N30.00 - Acute cystitis without hematuria Status: stable, progressing Assessment/Plan iv abx follow up cultures vent resp rx gt feeds sz rx thyroid replacement. wound care Subjective ROS Limited/Unobtainable: Yes Constitutional: Reports: malaise, weakness HEENT: Reports: no symptoms Cardiovascular: Reports: no symptoms Respiratory: Reports: shortness of breath, sputum Gastrointestinal/Abdominal: Reports: difficulty swallowing Genitourinary: Reports: no symptoms Neurologic/Psychiatric: Reports: pre-existing deficit Endocrine: Reports: no symptoms Hematologic/Lymphatic: Reports: anemia Allergies: Coded Allergies: No Known Allergies (Unverified , 02/23/18) All Systems: reviewed and negative except above Subjective no events. nonverbal at baseline. no fevers. tolerating feeds. labs noted. proteus in urine- sensitive to zosyn Objective Last 24 Hour Vital Signs Date Time Temp Pulse Resp B/P (MAP) Pulse Ox O2 Delivery O2 Flow Rate FiO2 02/26/18 06:40 63 16 30 02/26/18 04:59 75 17 30 02/26/18 04:00 73 02/26/18 04:00 97.7 72 16 147/61 100 Mechanical Ventilator 30 97.7 02/26/18 03:24 74 18 30 02/26/18 01:16 76 17 30 02/26/18 00:00 97.6 84 20 151/59 100 Mechanical Ventilator 30 97.6 02/26/18 00:00 84 02/25/18 22:51 80 22 30 02/25/18 20:56 86 23 30 02/25/18 20:00 82 02/25/18 20:00 97.9 88 16 135/73 99 Mechanical Ventilator 30 97.9 02/25/18 19:03 84 17 30 02/25/18 16:47 17 18 30 02/25/18 16:00 97.2 75 16 127/75 98 Mechanical Ventilator 30 97.2 02/25/18 16:00 72 02/25/18 14:46 69 18 30 02/25/18 12:40 72 16 30 02/25/18 12:00 74 02/25/18 12:00 30 02/25/18 12:00 97.2 71 16 120/45 100 Mechanical Ventilator 30 97.2 02/25/18 10:43 74 23 30 02/25/18 09:11 70 16 30 02/25/18 08:00 67 02/25/18 08:00 30 02/25/18 08:00 97.2 75 16 127/75 98 Mechanical Ventilator 30 97.2 Intake and Output 02/25/18 02/26/18 19:00 07:00 Intake Total 1087.5 ml 1350.00 ml Output Total 350 ml 390 ml Balance 737.5 ml 960.00 ml Intake Free Water 200 ml IV Total 587.5 ml 750.00 ml Tube Feeding 440 ml 400 ml Other 60 ml Output Urine Total 350 ml 300 ml Stool Total 90 ml # Bowel Movements 4 3 Laboratory Tests 02/25/18 10:15: Sodium Level 140, Potassium Level 3.1L, Chloride Level 104, Carbon Dioxide Level 26, Anion Gap 11, Blood Urea Nitrogen 54H, Creatinine 1.1, Estimat Glomerular Filtration Rate 49.1, Glucose Level 132H, Calcium Level 9.2 Height (Feet): 5 Height (Inches): 4.00 Weight (Pounds): 228 Objective General Appearance: WD/WN, lethargic, confused Neck: normal alignment Cardiovascular: normal peripheral pulses, normal rate, regular rhythm Respiratory/Chest: chest wall non-tender, lungs clear, normal breath sounds Abdomen: normal bowel sounds, non tender, soft, no organomegaly Edema: mild edema Neurologic: unresponsive, aphasia DIPAK OCONNELL February 26, 2018 07:56
[2018-02-26 08:00] VITALS: BP 134/64
--- NOTE | 2018-02-26 08:23 | Nephrology Progress Note ---
Assessment/Plan Assessment/Plan 1. AMEE- resolved, BUN down to 54 and Cr 1.1 - am labs pending. 2. Anasarca- dependant edema - due to immobilization/low oncotic pressure from hypoalbuminemia - Alb 2.1, high protein Nephro TF's 3. Resp FL- chronic, trached on vent 4. Elevated BUN- secondary intravasc volume depletion, BUN had improved to 54 - OK for DC from renal point Subjective Date patient seen: February 26, 2018 Time patient seen: 08:20 ROS Limited/Unobtainable: No Allergies: Coded Allergies: No Known Allergies (Unverified , 02/23/18) Subjective Patient trached on vent. Sleeping comfortably Objective Last 24 Hour Vital Signs Date Time Temp Pulse Resp B/P (MAP) Pulse Ox O2 Delivery O2 Flow Rate FiO2 02/26/18 06:40 63 16 30 02/26/18 04:59 75 17 30 02/26/18 04:00 73 02/26/18 04:00 97.7 72 16 147/61 100 Mechanical Ventilator 30 97.7 02/26/18 03:24 74 18 30 02/26/18 01:16 76 17 30 02/26/18 00:00 97.6 84 20 151/59 100 Mechanical Ventilator 30 97.6 02/26/18 00:00 84 02/25/18 22:51 80 22 30 02/25/18 20:56 86 23 30 02/25/18 20:00 82 02/25/18 20:00 97.9 88 16 135/73 99 Mechanical Ventilator 30 97.9 02/25/18 19:03 84 17 30 02/25/18 16:47 17 18 30 02/25/18 16:00 97.2 75 16 127/75 98 Mechanical Ventilator 30 97.2 02/25/18 16:00 72 02/25/18 14:46 69 18 30 02/25/18 12:40 72 16 30 02/25/18 12:00 74 02/25/18 12:00 30 02/25/18 12:00 97.2 71 16 120/45 100 Mechanical Ventilator 30 97.2 02/25/18 10:43 74 23 30 02/25/18 09:11 70 16 30 Intake and Output 02/25/18 02/26/18 19:00 07:00 Intake Total 1087.5 ml 1350.00 ml Output Total 350 ml 390 ml Balance 737.5 ml 960.00 ml Intake Free Water 200 ml IV Total 587.5 ml 750.00 ml Tube Feeding 440 ml 400 ml Other 60 ml Output Urine Total 350 ml 300 ml Stool Total 90 ml # Bowel Movements 4 3 Laboratory Tests 02/25/18 10:15: Sodium Level 140, Potassium Level 3.1L, Chloride Level 104, Carbon Dioxide Level 26, Anion Gap 11, Blood Urea Nitrogen 54H, Creatinine 1.1, Estimat Glomerular Filtration Rate 49.1, Glucose Level 132H, Calcium Level 9.2 Height (Feet): 5 Height (Inches): 4.00 Weight (Pounds): 228 General Appearance: WD/WN, no apparent distress EENT: PERRL/EOMI, normal ENT inspection Neck: non-tender, normal alignment Cardiovascular: normal peripheral pulses, normal rate Respiratory/Chest: rhonchi - bilaterally Abdomen: normal bowel sounds, non tender, soft Edema: 2+ Arm (L), 2+ Arm (R), 2+ Leg (L), 2+ Leg (R), 2+ Pedal (L), 2+ Pedal ( R), 2+ Generalized Harpal Pan M.D. February 26, 2018 08:23
[2018-02-26] MEDS: Vancomycin 1500mg IVPB SCH (09:00)
[2018-02-26] MEDS: Ferrous Sulfate 300 MG/5 ML UDC NG SCH ×2 (09:25→17:50)
[2018-02-26] MEDS: Ascorbic Acid 500mg tab GT SCH (09:26)
[2018-02-26] MEDS: Heparin 5000 units/ml inj SUBQ SCH ×2 (09:28→21:00)
--- NOTE | 2018-02-26 10:26 | Pulmonology Progress Note ---
Assessment/Plan Assessment/Plan IMPRESSION respiratory failure diffuse edema renal failure cellulitis possible chronic encephalopathy trach gt solitary kidney UTI PLAN vent as is maintain meds renal evaluation noted manage fluid status skin care iv antibiotics-dc and place on levaquin wound care nutrition protein supplementation dc in am if stable impression, plan, and exam edited and reviewed in detail care discussed with RN Subjective ROS Limited/Unobtainable: Yes Allergies: Coded Allergies: No Known Allergies (Unverified , 02/23/18) Subjective all appreciated and reviewed on vent cultures reviewed still with edema Objective Last 24 Hour Vital Signs Date Time Temp Pulse Resp B/P (MAP) Pulse Ox O2 Delivery O2 Flow Rate FiO2 02/26/18 09:01 59 16 30 02/26/18 08:00 97.5 73 16 134/64 100 Mechanical Ventilator 30 97.5 02/26/18 08:00 63 02/26/18 06:40 63 16 30 02/26/18 04:59 75 17 30 02/26/18 04:00 73 02/26/18 04:00 97.7 72 16 147/61 100 Mechanical Ventilator 30 97.7 02/26/18 03:24 74 18 30 02/26/18 01:16 76 17 30 02/26/18 00:00 97.6 84 20 151/59 100 Mechanical Ventilator 30 97.6 02/26/18 00:00 84 02/25/18 22:51 80 22 30 02/25/18 20:56 86 23 30 02/25/18 20:00 82 02/25/18 20:00 97.9 88 16 135/73 99 Mechanical Ventilator 30 97.9 02/25/18 19:03 84 17 30 02/25/18 16:47 17 18 30 02/25/18 16:00 97.2 75 16 127/75 98 Mechanical Ventilator 30 97.2 02/25/18 16:00 72 02/25/18 14:46 69 18 30 02/25/18 12:40 72 16 30 02/25/18 12:00 74 02/25/18 12:00 30 02/25/18 12:00 97.2 71 16 120/45 100 Mechanical Ventilator 30 97.2 02/25/18 10:43 74 23 30 Intake and Output 02/25/18 02/26/18 19:00 07:00 Intake Total 1087.5 ml 1350.00 ml Output Total 350 ml 390 ml Balance 737.5 ml 960.00 ml Intake Free Water 200 ml IV Total 587.5 ml 750.00 ml Tube Feeding 440 ml 400 ml Other 60 ml Output Urine Total 350 ml 300 ml Stool Total 90 ml # Bowel Movements 4 3 Objective WDWN trach poor LOC reduced breath sounds bilaterally without rhonchi or wheeze [id number] without MRG NABS nontender no HSM no CC anasarca GT nonfocal Microbiology Date/Time Source Procedure Growth Status 02/23/18 23:23 Blood Blood Culture - Preliminary NO GROWTH AFTER 48 HOURS Resulted 02/23/18 23:23 Blood Blood Culture - Preliminary NO GROWTH AFTER 48 HOURS Resulted 02/24/18 01:00 Nasal Nares MRSA Culture - Final NO METHICILLIN RESISTANT STAPH AUREUS... Complete 02/25/18 11:30 Stool Clostridium difficile Toxin Assay - Final Complete 02/23/18 23:41 Urine,Clean Catch Urine Culture - Preliminary Proteus Mirabilis Gram Negative Bacillus 2 Resulted 02/24/18 05:20 Sacral Wound Gram Stain - Final Resulted 02/24/18 05:20 Sacral Wound Wound Culture - Preliminary Resulted 02/24/18 01:00 Rectum VRE Culture - Final Enterococcus Faecalis - Vre Complete Current Medications Medications (Trade) Dose Ordered Sig/Aashish Route PRN Reason Start Time Stop Time Status Last Admin Dose Admin Acetaminophen (Tylenol) 650 mg Q4H PRN GT Mild Pain/Temp > 100.5 02/24/18 08:00 03/26/18 07:59 Ascorbic Acid (Vitamin C) 500 mg DAILY GT 02/25/18 09:00 03/26/18 08:59 02/26/18 09:26 Bisacodyl (Dulcolax) 10 mg DAILYPRN PRN RECTAL Constipation 02/24/18 08:00 03/26/18 07:59 Dextrose (Dextrose 50%) 25 ml STAT PRN IV Hypoglycemia 02/24/18 07:45 03/26/18 07:44 Dextrose (Dextrose 50%) 50 ml STAT PRN IV Hypoglycemia 02/24/18 07:45 03/26/18 07:44 02/25/18 06:05 Diphenhydramine HCl (Benadryl) 25 mg Q4HR PRN GT Itching 02/24/18 08:00 03/26/18 07:59 Ferrous Sulfate (Feosol) 330 mg BID NG 02/24/18 18:00 03/26/18 17:59 02/26/18 09:25 Heparin Sodium (Porcine) (Heparin 5000 units/ml) 5,000 units EVERY 12 HOURS SUBQ 02/24/18 21:00 03/26/18 20:59 02/26/18 09:28 Insulin Aspart (NovoLOG) Q6HR SUBQ 02/25/18 00:00 03/26/18 11:29 02/26/18 05:50 Insulin Detemir (Levemir) 12 units BEDTIME SUBQ 02/24/18 21:00 03/26/18 20:59 02/25/18 20:15 Levetiracetam (Keppra) 1,000 mg BID GT 02/24/18 18:00 03/26/18 17:59 02/26/18 09:26 Levothyroxine Sodium (Synthroid) 50 mcg DAILY@0630 ORAL 02/26/18 06:30 03/28/18 06:29 02/26/18 05:49 Magnesium Hydroxide (Mom) 30 ml DAILYPRN PRN ORAL Constipation 02/24/18 08:00 03/26/18 07:59 Ondansetron HCl (Zofran) 4 mg Q6H PRN GT Nausea & Vomiting 02/24/18 08:00 03/26/18 07:59 Piperacillin Sod/ Tazobactam Sod 3.375 gm/Dextrose 110 ml @ 27.5 mls/hr Q8H IVPB 02/24/18 09:30 03/03/18 09:29 02/26/18 09:26 Sodium Phosphate (Fleet's Sodium Phosl Enema) 133 ml DAILY PRN RECTAL Constipation 02/24/18 08:00 03/26/18 07:59 Valproic Acid (Depakene) 750 mg Q8HR NG 02/24/18 14:00 03/26/18 13:59 02/26/18 05:49 Vancomycin HCl (Vanco rx to dose) 1 ea DAILY PRN MISC Per rx protocol 02/24/18 07:45 03/26/18 07:44 Vancomycin HCl/ Dextrose 250 ml @ 125 mls/hr Q24H IVPB 02/26/18 12:00 03/03/18 11:59 Edinson Barton MD February 26, 2018 10:26
[2018-02-26 10:56] LABS: BASOPHILS % (AUTO) 0.6 % (0.0-2.0); EOSINOPHILS % (AUTO) 3.7 % (0.0-3.0); HEMATOCRIT 29.4 % (37.0-47.0); HEMOGLOBIN 9.5 G/DL (12.0-16.0); LYMPHOCYTES % (AUTO) 31.7 % (20.0-45.0); MEAN CORPUSCULAR VOLUME 95 FL (80-99); MONOCYTES % (AUTO) 5.9 % (1.0-10.0); NEUTROPHILS % (AUTO) 58.1 % (45.0-75.0); PLATELET COUNT 134 K/UL (150-450); RED BLOOD COUNT 3.09 M/UL (4.20-5.40); RED CELL DISTRIBUTION WIDTH 15.2 % (11.6-14.8); WHITE BLOOD COUNT 5.2 K/UL (4.8-10.8)
[2018-02-26 11:22] LABS: ALANINE AMINOTRANSFERASE 18 U/L (12-78); ALBUMIN 1.6 G/DL (3.4-5.0); ALBUMIN/GLOBULIN RATIO 0.4 (1.0-2.7); ALKALINE PHOSPHATASE 149 U/L (46-116); ANION GAP 9 mmol/L (5-15); ASPARTATE AMINO TRANSFERASE 31 U/L (15-37); BILIRUBIN,TOTAL 0.2 MG/DL (0.2-1.0); BLOOD UREA NITROGEN 42 mg/dL (7-18); CALCIUM 8.7 MG/DL (8.5-10.1); CARBON DIOXIDE 26 MMOL/L (21-32); CHLORIDE 109 MMOL/L (98-107); POTASSIUM 2.9 MMOL/L (3.5-5.1); SODIUM 144 MMOL/L (136-145)
[2018-02-26 12:00] VITALS: BP 105/38
[2018-02-26] MEDS ORDERED: Vancomycin 1500mg IVPB SCH (12:00)
[2018-02-26] MEDS ORDERED: Potassium Chloride 40 MEQ in Sodium Chloride 500ML 550 ML IVPB ONE (14:00)
[2018-02-26 16:00] VITALS: BP 124/55
[2018-02-26 20:00] VITALS: BP 109/71
[2018-02-26] MEDS: Levemir Flexpen SUBQ SCH (21:00)
[2018-02-27] VITALS: BP 141/65
[2018-02-27] MEDS: NovoLOG Insulin Flexpen SUBQ SCH ×4 (00:52→17:49)
[2018-02-27 04:00] VITALS: BP 132/63
[2018-02-27 06:12] LABS: BASOPHILS % (AUTO) 0.8 % (0.0-2.0); EOSINOPHILS % (AUTO) 7.5 % (0.0-3.0); HEMATOCRIT 27.1 % (37.0-47.0); LYMPHOCYTES % (AUTO) 27.6 % (20.0-45.0); MEAN CORPUSCULAR VOLUME 95 FL (80-99); MONOCYTES % (AUTO) 7.9 % (1.0-10.0); NEUTROPHILS % (AUTO) 56.2 % (45.0-75.0); PLATELET COUNT 137 K/UL (150-450); RED BLOOD COUNT 2.86 M/UL (4.20-5.40); RED CELL DISTRIBUTION WIDTH 15.6 % (11.6-14.8); WHITE BLOOD COUNT 4.3 K/UL (4.8-10.8)
[2018-02-27] MEDS: Valproic Acid 250mg/5ml Liquid NG SCH ×3 (06:15→23:48)
[2018-02-27 06:43] LABS: ALANINE AMINOTRANSFERASE 17 U/L (12-78); ALBUMIN 1.7 G/DL (3.4-5.0); ALBUMIN/GLOBULIN RATIO 0.4 (1.0-2.7); ALKALINE PHOSPHATASE 168 U/L (46-116); ANION GAP 9 mmol/L (5-15); ASPARTATE AMINO TRANSFERASE 27 U/L (15-37); BILIRUBIN,TOTAL 0.2 MG/DL (0.2-1.0); BLOOD UREA NITROGEN 39 mg/dL (7-18); CALCIUM 9.3 MG/DL (8.5-10.1); CARBON DIOXIDE 25 MMOL/L (21-32); CHLORIDE 113 MMOL/L (98-107); CREATININE 0.9 MG/DL (0.55-1.30); POTASSIUM 3.2 MMOL/L (3.5-5.1); SODIUM 147 MMOL/L (136-145)
[2018-02-27 08:00] VITALS: BP 135/56
--- NOTE | 2018-02-27 08:00 | Nephrology Progress Note ---
Assessment/Plan Assessment/Plan 1. AMEE- resolved, BUN down to 39 and Cr 0.9 2. Anasarca- dependant edema much improved - due to immobilization/low oncotic pressure from hypoalbuminemia, Alb 2.1, high protein Nephro TF's 3. Resp FL- chronic, trached on vent 4. Elevated BUN- secondary intravasc volume depletion, BUN had improved to 39 - OK for DC from renal point 5. Hypokalemia- replace IV today Subjective Date patient seen: February 27, 2018 Time patient seen: 07:58 ROS Limited/Unobtainable: Yes Allergies: Coded Allergies: No Known Allergies (Unverified , 02/23/18) Subjective Patient trached on vent in no apparent distress Objective Last 24 Hour Vital Signs Date Time Temp Pulse Resp B/P (MAP) Pulse Ox O2 Delivery O2 Flow Rate FiO2 02/27/18 06:41 56 16 30 02/27/18 04:51 59 17 30 02/27/18 04:00 95.8 56 12 132/63 100 Mechanical Ventilator 30 95.8 02/27/18 04:00 70 02/27/18 03:29 60 17 30 02/27/18 01:10 61 18 30 02/27/18 00:00 52 02/27/18 00:00 96.1 54 12 141/65 100 Mechanical Ventilator 30 96.1 02/26/18 23:05 59 18 30 02/26/18 21:12 56 17 30 02/26/18 20:00 54 02/26/18 20:00 96.3 62 16 109/71 100 Mechanical Ventilator 30 96.3 02/26/18 18:49 62 18 30 02/26/18 16:32 65 20 30 02/26/18 16:00 97.2 70 20 124/55 100 Mechanical Ventilator 30 97.2 02/26/18 16:00 65 02/26/18 14:32 70 18 30 02/26/18 13:04 62 22 30 02/26/18 12:00 67 02/26/18 12:00 97.2 68 16 105/38 100 Mechanical Ventilator 30 97.2 02/26/18 10:32 58 16 30 02/26/18 09:01 59 16 30 02/26/18 08:00 97.5 73 16 134/64 100 Mechanical Ventilator 30 97.5 02/26/18 08:00 63 Intake and Output 02/26/18 02/27/18 19:00 07:00 Intake Total 590 ml 500 ml Output Total 620 ml 1725 ml Balance -30 ml -1225 ml Intake Free Water 110 ml Tube Feeding 480 ml 400 ml Other 100 ml Output Urine Total 620 ml 1625 ml Stool Total 100 ml # Bowel Movements 3 3 Laboratory Tests 02/26/18 09:50: White Blood Count 5.2, Red Blood Count 3.09L, Hemoglobin 9.5L, Hematocrit 29.4L , Mean Corpuscular Volume 95, Mean Corpuscular Hemoglobin 30.6, Mean Corpuscular Hemoglobin Concent 32.2, Red Cell Distribution Width 15.2H, Platelet Count 134L, Mean Platelet Volume 6.1L, Neutrophils (%) (Auto) 58.1, Lymphocytes (%) (Auto) 31.7, Monocytes (%) (Auto) 5.9, Eosinophils (%) (Auto) 3.7H, Basophils (%) (Auto) 0.6, Sodium Level 144, Potassium Level 2.9L, Chloride Level 109H, Carbon Dioxide Level 26, Anion Gap 9, Blood Urea Nitrogen 42H, Creatinine 1.0, Estimat Glomerular Filtration Rate 54.8, Glucose Level 187H , Calcium Level 8.7, Total Bilirubin 0.2, Aspartate Amino Transf (AST/SGOT) 31, Alanine Aminotransferase (ALT/SGPT) 18, Alkaline Phosphatase 149H, Total Protein 6.0L, Albumin 1.6L, Globulin 4.4, Albumin/Globulin Ratio 0.4L 02/27/18 05:15: White Blood Count 4.3L, Red Blood Count 2.86L, Hemoglobin 9.0L, Hematocrit 27.1L , Mean Corpuscular Volume 95, Mean Corpuscular Hemoglobin 31.5H, Mean Corpuscular Hemoglobin Concent 33.2, Red Cell Distribution Width 15.6H, Platelet Count 137L, Mean Platelet Volume 6.2L, Neutrophils (%) (Auto) 56.2, Lymphocytes (%) (Auto) 27.6, Monocytes (%) (Auto) 7.9, Eosinophils (%) (Auto) 7.5H, Basophils (%) (Auto) 0.8, Sodium Level 147H, Potassium Level 3.2L, Chloride Level 113H, Carbon Dioxide Level 25, Anion Gap 9, Blood Urea Nitrogen 39H, Creatinine 0.9, Estimat Glomerular Filtration Rate > 60, Glucose Level 118H , Calcium Level 9.3, Total Bilirubin 0.2, Aspartate Amino Transf (AST/SGOT) 27, Alanine Aminotransferase (ALT/SGPT) 17, Alkaline Phosphatase 168H, Total Protein 6.3L, Albumin 1.7L, Globulin 4.6, Albumin/Globulin Ratio 0.4L Height (Feet): 5 Height (Inches): 4.00 Weight (Pounds): 228 General Appearance: no apparent distress EENT: normal ENT inspection Neck: non-tender, normal alignment Cardiovascular: normal rate, regular rhythm Respiratory/Chest: rhonchi - bilaterally Abdomen: non tender, soft Edema: 1+ Arm (L), 1+ Arm (R), 1+ Leg (L), 1+ Leg (R), 1+ Pedal (L), 1+ Pedal ( R), 1+ Generalized Harpal Pan M.D. February 27, 2018 08:00
--- NOTE | 2018-02-27 08:10 | General Progress Note ---
Assessment/Plan Problem List: (1) Sepsis ICD Codes: A41.9 - Sepsis, unspecified organism SNOMED: 93662738 (2) Encephalopathy ICD Codes: G93.40 - Encephalopathy, unspecified SNOMED: 35394717 (3) Functional quadriplegia ICD Codes: R53.2 - Functional quadriplegia SNOMED: 874632679337179 (4) Prerenal azotemia ICD Codes: R79.89 - Other specified abnormal findings of blood chemistry SNOMED: 991538243 (5) Anemia ICD Codes: D64.9 - Anemia, unspecified SNOMED: 125666664 Qualifiers: Qualified Codes: D64.9 - Anemia, unspecified (6) Proteinuria ICD Codes: R80.9 - Proteinuria, unspecified SNOMED: 02636987 Qualifiers: Qualified Codes: R80.9 - Proteinuria, unspecified (7) Dehydration ICD Codes: E86.0 - Dehydration SNOMED: 86706765 (8) UTI (urinary tract infection) ICD Codes: N39.0 - Urinary tract infection, site not specified SNOMED: 18002639 Qualifiers: Qualified Codes: N30.00 - Acute cystitis without hematuria Status: stable Assessment/Plan iv abx follow up cultures ID called vent resp rx gt feeds increase water flush sz rx thyroid replacement. wound care Subjective ROS Limited/Unobtainable: Yes Constitutional: Reports: malaise, weakness HEENT: Reports: no symptoms Cardiovascular: Reports: no symptoms Respiratory: Reports: cough Gastrointestinal/Abdominal: Reports: difficulty swallowing Genitourinary: Reports: no symptoms Neurologic/Psychiatric: Reports: pre-existing deficit Endocrine: Reports: no symptoms Hematologic/Lymphatic: Reports: anemia Allergies: Coded Allergies: No Known Allergies (Unverified , 02/23/18) All Systems: reviewed and negative except above Subjective no events. nonverbal at baseline. no fevers. tolerating feeds. labs noted. multiple positive cultures Objective Last 24 Hour Vital Signs Date Time Temp Pulse Resp B/P (MAP) Pulse Ox O2 Delivery O2 Flow Rate FiO2 02/27/18 06:41 56 16 30 02/27/18 04:51 59 17 30 02/27/18 04:00 95.8 56 12 132/63 100 Mechanical Ventilator 30 95.8 02/27/18 04:00 70 02/27/18 03:29 60 17 30 02/27/18 01:10 61 18 30 02/27/18 00:00 52 02/27/18 00:00 96.1 54 12 141/65 100 Mechanical Ventilator 30 96.1 02/26/18 23:05 59 18 30 02/26/18 21:12 56 17 30 02/26/18 20:00 54 02/26/18 20:00 96.3 62 16 109/71 100 Mechanical Ventilator 30 96.3 02/26/18 18:49 62 18 30 02/26/18 16:32 65 20 30 02/26/18 16:00 97.2 70 20 124/55 100 Mechanical Ventilator 30 97.2 02/26/18 16:00 65 02/26/18 14:32 70 18 30 02/26/18 13:04 62 22 30 02/26/18 12:00 67 02/26/18 12:00 97.2 68 16 105/38 100 Mechanical Ventilator 30 97.2 02/26/18 10:32 58 16 30 02/26/18 09:01 59 16 30 Intake and Output 02/26/18 02/27/18 19:00 07:00 Intake Total 590 ml 500 ml Output Total 620 ml 1725 ml Balance -30 ml -1225 ml Intake Free Water 110 ml Tube Feeding 480 ml 400 ml Other 100 ml Output Urine Total 620 ml 1625 ml Stool Total 100 ml # Bowel Movements 3 3 Laboratory Tests 02/26/18 09:50: White Blood Count 5.2, Red Blood Count 3.09L, Hemoglobin 9.5L, Hematocrit 29.4L , Mean Corpuscular Volume 95, Mean Corpuscular Hemoglobin 30.6, Mean Corpuscular Hemoglobin Concent 32.2, Red Cell Distribution Width 15.2H, Platelet Count 134L, Mean Platelet Volume 6.1L, Neutrophils (%) (Auto) 58.1, Lymphocytes (%) (Auto) 31.7, Monocytes (%) (Auto) 5.9, Eosinophils (%) (Auto) 3.7H, Basophils (%) (Auto) 0.6, Sodium Level 144, Potassium Level 2.9L, Chloride Level 109H, Carbon Dioxide Level 26, Anion Gap 9, Blood Urea Nitrogen 42H, Creatinine 1.0, Estimat Glomerular Filtration Rate 54.8, Glucose Level 187H , Calcium Level 8.7, Total Bilirubin 0.2, Aspartate Amino Transf (AST/SGOT) 31, Alanine Aminotransferase (ALT/SGPT) 18, Alkaline Phosphatase 149H, Total Protein 6.0L, Albumin 1.6L, Globulin 4.4, Albumin/Globulin Ratio 0.4L 02/27/18 05:15: White Blood Count 4.3L, Red Blood Count 2.86L, Hemoglobin 9.0L, Hematocrit 27.1L , Mean Corpuscular Volume 95, Mean Corpuscular Hemoglobin 31.5H, Mean Corpuscular Hemoglobin Concent 33.2, Red Cell Distribution Width 15.6H, Platelet Count 137L, Mean Platelet Volume 6.2L, Neutrophils (%) (Auto) 56.2, Lymphocytes (%) (Auto) 27.6, Monocytes (%) (Auto) 7.9, Eosinophils (%) (Auto) 7.5H, Basophils (%) (Auto) 0.8, Sodium Level 147H, Potassium Level 3.2L, Chloride Level 113H, Carbon Dioxide Level 25, Anion Gap 9, Blood Urea Nitrogen 39H, Creatinine 0.9, Estimat Glomerular Filtration Rate > 60, Glucose Level 118H , Calcium Level 9.3, Total Bilirubin 0.2, Aspartate Amino Transf (AST/SGOT) 27, Alanine Aminotransferase (ALT/SGPT) 17, Alkaline Phosphatase 168H, Total Protein 6.3L, Albumin 1.7L, Globulin 4.6, Albumin/Globulin Ratio 0.4L Height (Feet): 5 Height (Inches): 4.00 Weight (Pounds): 228 Objective General Appearance: WD/WN, lethargic, confused Neck: normal alignment Cardiovascular: normal peripheral pulses, normal rate, regular rhythm Respiratory/Chest: chest wall non-tender, lungs clear, normal breath sounds Abdomen: normal bowel sounds, non tender, soft, no organomegaly Edema: mild edema Neurologic: unresponsive, aphasia DIPAK OCONNELL February 27, 2018 08:10
--- NOTE | 2018-02-27 08:30 | Pulmonology Progress Note ---
Assessment/Plan Assessment/Plan IMPRESSION respiratory failure diffuse edema renal failure cellulitis possible chronic encephalopathy trach gt solitary kidney UTI PLAN vent as is maintain meds renal evaluation noted and clearance reviewed skin care levaquin wound care nutrition protein supplementation dc to snf impression, plan, and exam edited and reviewed in detail care discussed with RN Subjective ROS Limited/Unobtainable: Yes Allergies: Coded Allergies: No Known Allergies (Unverified , 02/23/18) Subjective all appreciated and reviewed on vent cultures reviewed still with edema but better Objective Last 24 Hour Vital Signs Date Time Temp Pulse Resp B/P (MAP) Pulse Ox O2 Delivery O2 Flow Rate FiO2 02/27/18 06:41 56 16 30 02/27/18 04:51 59 17 30 02/27/18 04:00 95.8 56 12 132/63 100 Mechanical Ventilator 30 95.8 02/27/18 04:00 70 02/27/18 03:29 60 17 30 02/27/18 01:10 61 18 30 02/27/18 00:00 52 02/27/18 00:00 96.1 54 12 141/65 100 Mechanical Ventilator 30 96.1 02/26/18 23:05 59 18 30 02/26/18 21:12 56 17 30 02/26/18 20:00 54 02/26/18 20:00 96.3 62 16 109/71 100 Mechanical Ventilator 30 96.3 02/26/18 18:49 62 18 30 02/26/18 16:32 65 20 30 02/26/18 16:00 97.2 70 20 124/55 100 Mechanical Ventilator 30 97.2 02/26/18 16:00 65 02/26/18 14:32 70 18 30 02/26/18 13:04 62 22 30 02/26/18 12:00 67 02/26/18 12:00 97.2 68 16 105/38 100 Mechanical Ventilator 30 97.2 02/26/18 10:32 58 16 30 02/26/18 09:01 59 16 30 Intake and Output 02/26/18 02/27/18 19:00 07:00 Intake Total 590 ml 500 ml Output Total 620 ml 1725 ml Balance -30 ml -1225 ml Intake Free Water 110 ml Tube Feeding 480 ml 400 ml Other 100 ml Output Urine Total 620 ml 1625 ml Stool Total 100 ml # Bowel Movements 3 3 Objective WDWN trach poor LOC reduced breath sounds bilaterally without rhonchi or wheeze [id number] without MRG NABS nontender no HSM no CC anasarca improved GT nonfocal Microbiology Date/Time Source Procedure Growth Status 02/25/18 11:30 Stool Clostridium difficile Toxin Assay - Final Complete Laboratory Tests 02/26/18 09:50: White Blood Count 5.2, Red Blood Count 3.09L, Hemoglobin 9.5L, Hematocrit 29.4L , Mean Corpuscular Volume 95, Mean Corpuscular Hemoglobin 30.6, Mean Corpuscular Hemoglobin Concent 32.2, Red Cell Distribution Width 15.2H, Platelet Count 134L, Mean Platelet Volume 6.1L, Neutrophils (%) (Auto) 58.1, Lymphocytes (%) (Auto) 31.7, Monocytes (%) (Auto) 5.9, Eosinophils (%) (Auto) 3.7H, Basophils (%) (Auto) 0.6, Sodium Level 144, Potassium Level 2.9L, Chloride Level 109H, Carbon Dioxide Level 26, Anion Gap 9, Blood Urea Nitrogen 42H, Creatinine 1.0, Estimat Glomerular Filtration Rate 54.8, Glucose Level 187H , Calcium Level 8.7, Total Bilirubin 0.2, Aspartate Amino Transf (AST/SGOT) 31, Alanine Aminotransferase (ALT/SGPT) 18, Alkaline Phosphatase 149H, Total Protein 6.0L, Albumin 1.6L, Globulin 4.4, Albumin/Globulin Ratio 0.4L 02/27/18 05:15: White Blood Count 4.3L, Red Blood Count 2.86L, Hemoglobin 9.0L, Hematocrit 27.1L , Mean Corpuscular Volume 95, Mean Corpuscular Hemoglobin 31.5H, Mean Corpuscular Hemoglobin Concent 33.2, Red Cell Distribution Width 15.6H, Platelet Count 137L, Mean Platelet Volume 6.2L, Neutrophils (%) (Auto) 56.2, Lymphocytes (%) (Auto) 27.6, Monocytes (%) (Auto) 7.9, Eosinophils (%) (Auto) 7.5H, Basophils (%) (Auto) 0.8, Sodium Level 147H, Potassium Level 3.2L, Chloride Level 113H, Carbon Dioxide Level 25, Anion Gap 9, Blood Urea Nitrogen 39H, Creatinine 0.9, Estimat Glomerular Filtration Rate > 60, Glucose Level 118H , Calcium Level 9.3, Total Bilirubin 0.2, Aspartate Amino Transf (AST/SGOT) 27, Alanine Aminotransferase (ALT/SGPT) 17, Alkaline Phosphatase 168H, Total Protein 6.3L, Albumin 1.7L, Globulin 4.6, Albumin/Globulin Ratio 0.4L Current Medications Medications (Trade) Dose Ordered Sig/Aashish Route PRN Reason Start Time Stop Time Status Last Admin Dose Admin Acetaminophen (Tylenol) 650 mg Q4H PRN GT Mild Pain/Temp > 100.5 02/24/18 08:00 03/26/18 07:59 Ascorbic Acid (Vitamin C) 500 mg DAILY GT 02/25/18 09:00 03/26/18 08:59 02/26/18 09:26 Bisacodyl (Dulcolax) 10 mg DAILYPRN PRN RECTAL Constipation 02/24/18 08:00 03/26/18 07:59 Dextrose (Dextrose 50%) 25 ml STAT PRN IV Hypoglycemia 02/24/18 07:45 03/26/18 07:44 Dextrose (Dextrose 50%) 50 ml STAT PRN IV Hypoglycemia 02/24/18 07:45 03/26/18 07:44 02/25/18 06:05 Diphenhydramine HCl (Benadryl) 25 mg Q4HR PRN GT Itching 02/24/18 08:00 03/26/18 07:59 Ferrous Sulfate (Feosol) 330 mg BID NG 02/24/18 18:00 03/26/18 17:59 02/26/18 17:50 Heparin Sodium (Porcine) (Heparin 5000 units/ml) 5,000 units EVERY 12 HOURS SUBQ 02/24/18 21:00 03/26/18 20:59 02/26/18 09:28 Insulin Aspart (NovoLOG) Q6HR SUBQ 02/25/18 00:00 03/26/18 11:29 02/27/18 00:52 Insulin Detemir (Levemir) 12 units BEDTIME SUBQ 02/24/18 21:00 03/26/18 20:59 02/25/18 20:15 Levetiracetam (Keppra) 1,000 mg BID GT 02/24/18 18:00 03/26/18 17:59 02/26/18 17:50 Levofloxacin (Levaquin) 250 mg DAILY ORAL 02/27/18 09:00 03/06/18 08:59 Levothyroxine Sodium (Synthroid) 50 mcg DAILY@0630 ORAL 02/26/18 06:30 03/28/18 06:29 02/27/18 06:15 Magnesium Hydroxide (Mom) 30 ml DAILYPRN PRN ORAL Constipation 02/24/18 08:00 03/26/18 07:59 Ondansetron HCl (Zofran) 4 mg Q6H PRN GT Nausea & Vomiting 02/24/18 08:00 03/26/18 07:59 Potassium Chloride 100 ml @ 50 mls/hr ONCE ONCE IVPB 02/27/18 08:00 02/27/18 09:59 UNV Potassium Chloride (K-Dur) 40 meq ONCE ONCE ORAL 02/27/18 08:00 02/27/18 08:01 UNV Sodium Phosphate (Fleet's Sodium Phosl Enema) 133 ml DAILY PRN RECTAL Constipation 02/24/18 08:00 03/26/18 07:59 Valproic Acid (Depakene) 750 mg Q8HR NG 02/24/18 14:00 03/26/18 13:59 02/27/18 06:15 Edinson Barton MD February 27, 2018 08:30
[2018-02-27] MEDS: Ferrous Sulfate 300 MG/5 ML UDC NG SCH ×2 (09:18→17:46)
[2018-02-27] MEDS: Ascorbic Acid 500mg tab GT SCH (09:18)
[2018-02-27] MEDS: Heparin 5000 units/ml inj SUBQ SCH ×2 (09:24→23:50)
[2018-02-27 12:00] VITALS: BP 159/78
[2018-02-27] MEDS ORDERED: Tigecycline 100 MG in D5W 110 ML IVPB SCH (12:00)
--- NOTE | 2018-02-27 14:47 | Cardiology Report ---
APPROVED REPORT EKG Measurement Heart [id number] [id number] Sinus rhythm with premature supraventricular complexes Prolonged QT Abnormal ECG
[2018-02-27 16:00] VITALS: BP 128/63
--- NOTE | 2018-02-27 17:15 | Consultation ---
DATE OF CONSULTATION: 02/27/2018 INFECTIOUS DISEASE CONSULTATION CONSULTING PHYSICIAN: Akbar Long M.D. REFERRING PHYSICIAN: Glynn King M.D. REASON FOR CONSULTATION: Urinary tract infection. HISTORY OF PRESENTING ILLNESS: The patient is a 72-year-old lady with history of respiratory failure, status post tracheostomy, hypertension was transferred from a detention facility with elevated BUN. She was found to have an urinary tract infection and an Infectious Diseases consultation has been obtained for antibiotics. PAST MEDICAL HISTORY: 1. History of respiratory failure, status post tracheostomy. 2. Encephalopathy. 3. Hypertension. 4. Status post G-tube placement. 5. History of chronic kidney disease. 6. Seizure disorder. SOCIAL HISTORY: No history of smoking, alcohol, or drug use. FAMILY HISTORY: Noncontributory. REVIEW OF SYSTEMS: Unable to obtain currently. MEDICATIONS: As an inpatient, the patient is on Levaquin, levothyroxine, ascorbic acid, insulin, subcutaneous heparin, Keppra, ferrous sulfate, valproic acid, Benadryl, Dulcolax, milk of magnesia, Tylenol and Zofran. ALLERGIES: No known drug allergies. PHYSICAL EXAMINATION: VITAL SIGNS: Temperature of 95.8 degrees, T-max of 97.9 degrees, pulse of 56, respiratory rate of 16, blood pressure 132/63, O2 saturation of 100%. HEENT: Pupils are equally reactive to light and accommodation. Mouth appears clean without thrush. NECK: Supple. No adenopathy. No JVD. CARDIOVASCULAR: Regular rate and rhythm. No murmurs. LUNGS: Clear to auscultation bilaterally. No crackles. No wheezes. ABDOMEN: Soft and nontender. No organomegaly. G-tube site appears clean. EXTREMITIES: No cyanosis, no clubbing. Edema noted bilaterally. LABORATORY DATA: White count of 4.3, hemoglobin 9, hematocrit 27.1, MCV 95, platelet count of 137,000 with neutrophils of 56%. Sodium 147, potassium 3.2, chloride 113, bicarb 25, BUN 39, creatinine 0.9, glucose 118, calcium 9.3. Total bilirubin 0.2. AST 27, ALT 17, alkaline phosphatase 168. Total protein 6.3. Albumin 1.7. UA showing 20 to 30 white cells. Stool for C. difficile is negative. Sacral wound culture growing gram-negative rods. Rectal swab was positive for VRE. Nasal swab was negative for MRSA. Urine culture is growing Proteus and Klebsiella. The Proteus is amikacin susceptible, cefepime susceptible, Levaquin susceptible. The Klebsiella is the which is tigecycline susceptible. 02/23/2018 blood cultures are negative. ASSESSMENT: This is a 72-year-old lady with history of respiratory failure, status post tracheostomy, hypertension, who comes in and is found to have: 1. Hypertension. 2. Respiratory failure. 3. Klebsiella and Proteus urinary tract infection. 4. Rectal vancomycin resistant enterococcus colonization. PLAN: 1. Continue Levaquin 3 more days. 2. We will start the patient on tigecycline. 3. We will follow up cultures. I would like to thank, Dr. King for this consultation. Akbar Long M.D. DR: LIYAH JOB#: [id number] CC:
[2018-02-27] MEDS ORDERED: NS 275ml ONE (17:43)
[2018-02-27] MEDS ORDERED: Tubing IV Secondary IV ONE (17:43)
[2018-02-27] MEDS ORDERED: Sterile Water Irrig 1000ml IRRIG ONE (17:43)
[2018-02-27 20:00] VITALS: BP 157/76
--- NOTE | 2018-02-27 23:20 | General Progress Note ---
Assessment/Plan Assessment/Plan GI CONSULT Dictated GT cleared for tonight Will change in am Thank you Mackenzie Nunez MD Subjective Allergies: Coded Allergies: No Known Allergies (Unverified , 02/23/18) Objective Last 24 Hour Vital Signs Date Time Temp Pulse Resp B/P (MAP) Pulse Ox O2 Delivery O2 Flow Rate FiO2 02/27/18 22:49 54 16 30 02/27/18 20:49 57 16 30 02/27/18 20:36 56 02/27/18 19:40 62 16 30 02/27/18 16:42 69 16 30 02/27/18 16:00 97.2 76 16 128/63 100 Mechanical Ventilator 30 97.2 02/27/18 16:00 65 02/27/18 14:58 66 16 30 02/27/18 12:42 74 20 30 02/27/18 12:00 97.5 69 16 159/78 100 Mechanical Ventilator 30 97.5 02/27/18 12:00 70 02/27/18 11:16 72 16 30 02/27/18 10:25 69 17 30 02/27/18 08:00 97.2 52 16 135/56 100 Mechanical Ventilator 97.2 02/27/18 08:00 56 02/27/18 06:41 56 16 30 02/27/18 04:51 59 17 30 02/27/18 04:00 95.8 56 12 132/63 100 Mechanical Ventilator 30 95.8 02/27/18 04:00 70 02/27/18 03:29 60 17 30 02/27/18 01:10 61 18 30 02/27/18 00:00 52 02/27/18 00:00 96.1 54 12 141/65 100 Mechanical Ventilator 30 96.1 Intake and Output 02/26/18 02/27/18 19:00 07:00 Intake Total 590 ml 500 ml Output Total 620 ml 1725 ml Balance -30 ml -1225 ml Intake Free Water 110 ml Tube Feeding 480 ml 400 ml Other 100 ml Output Urine Total 620 ml 1625 ml Stool Total 100 ml # Bowel Movements 3 3 Laboratory Tests 02/27/18 05:15: White Blood Count 4.3L, Red Blood Count 2.86L, Hemoglobin 9.0L, Hematocrit 27.1L , Mean Corpuscular Volume 95, Mean Corpuscular Hemoglobin 31.5H, Mean Corpuscular Hemoglobin Concent 33.2, Red Cell Distribution Width 15.6H, Platelet Count 137L, Mean Platelet Volume 6.2L, Neutrophils (%) (Auto) 56.2, Lymphocytes (%) (Auto) 27.6, Monocytes (%) (Auto) 7.9, Eosinophils (%) (Auto) 7.5H, Basophils (%) (Auto) 0.8, Sodium Level 147H, Potassium Level 3.2L, Chloride Level 113H, Carbon Dioxide Level 25, Anion Gap 9, Blood Urea Nitrogen 39H, Creatinine 0.9, Estimat Glomerular Filtration Rate > 60, Glucose Level 118H , Calcium Level 9.3, Total Bilirubin 0.2, Aspartate Amino Transf (AST/SGOT) 27, Alanine Aminotransferase (ALT/SGPT) 17, Alkaline Phosphatase 168H, Total Protein 6.3L, Albumin 1.7L, Globulin 4.6, Albumin/Globulin Ratio 0.4L Height (Feet): 5 Height (Inches): 4.00 Weight (Pounds): 228 Enrico Nunez MD February 27, 2018 23:20
[2018-02-27] MEDS: Tigecycline 50 MG in D5W 110 ML IVPB SCH (23:48)
[2018-02-27] MEDS: Levemir Flexpen SUBQ SCH (23:54)
[2018-02-28] VITALS: BP 149/71
[2018-02-28] MEDS: NovoLOG Insulin Flexpen SUBQ SCH ×5 (01:26→23:41)
--- NOTE | 2018-02-28 03:46 | Consultation ---
DATE OF CONSULTATION: 02/27/2018 GASTROENTEROLOGY CONSULTATION CONSULTING PHYSICIAN: Enrico Nunez M.D. CHIEF COMPLAINT: I was asked to see this patient for evaluation of clogged gastrostomy catheter. HISTORY OF PRESENT ILLNESS: The patient is an unfortunate 72-year-old obese white woman with chronic respiratory failure requiring tracheostomy and chronic ventilator, comes in to the hospital for laboratory abnormalities. During the course of evaluation, it was noted that the gastrostomy tube was occluded. This has been temporarily rectified overnight. The patient herself is nonverbal and unable to provide any history. Most of the information is only available from the chart. PAST MEDICAL HISTORY: History of chronic respiratory failure, morbid obesity, toxic encephalopathy, hypertension, and dysphagia, status post gastrostomy tube placement. ALLERGIES: None. MEDICATIONS: See chart list for details. SOCIAL HISTORY: The patient w/o history of smoking or drinking. FAMILY HISTORY: Noncontributory. REVIEW OF SYSTEMS: Otherwise negative. PHYSICAL EXAMINATION: GENERAL: Debilitated, obese woman, seen in her room. HEENT: Normocephalic and atraumatic. Sclerae were anicteric. The oropharynx was difficult to evaluate. NECK: Difficult to evaluate. CHEST: Reveals scattered rhonchi. CARDIOVASCULAR: Revealed a regular rate. ABDOMEN: Soft, obese with good bowel sounds with a gastrostomy tube, which appeared to be in good position. The gastrostomy tube was already flushed into functional status and was cleared, although the catheter appears to have significant residual deposits. EXTREMITIES: Revealed 2+ edema. NEUROLOGIC: Notable for obtundation. LABORATORY DATA: Noted. ASSESSMENT: This patient presents with a faulty gastrostomy catheter, which is now temporarily repaired. I will secure a gastrostomy tube replacement catheter in the morning and replace the catheter with a brand new one. For the time being, the tube feedings can be continued and the patient should receive adequate gastrostomy flush to both maintain the patency and also maintain hydration. RECOMMENDATIONS: Per above discussion and per orders written in the chart. Thank you for asking me to participate in the care of this patient. Enrico Nunez M.D. DR: Benedicto JOB#: [id number] CC: KYLEE
[2018-02-28 04:00] VITALS: BP 160/58
[2018-02-28 04:25] LABS: ALANINE AMINOTRANSFERASE 19 U/L (12-78); ALBUMIN 1.7 G/DL (3.4-5.0); ALBUMIN/GLOBULIN RATIO 0.4 (1.0-2.7); ALKALINE PHOSPHATASE 176 U/L (46-116); ANION GAP 11 mmol/L (5-15); ASPARTATE AMINO TRANSFERASE 31 U/L (15-37); BILIRUBIN,TOTAL 0.1 MG/DL (0.2-1.0); BLOOD UREA NITROGEN 43 mg/dL (7-18); CALCIUM 9.3 MG/DL (8.5-10.1); CARBON DIOXIDE 23 MMOL/L (21-32); CHLORIDE 111 MMOL/L (98-107); CREATININE 0.9 MG/DL (0.55-1.30); POTASSIUM 4.2 MMOL/L (3.5-5.1); SODIUM 145 MMOL/L (136-145)
[2018-02-28] MEDS: Valproic Acid 250mg/5ml Liquid NG SCH ×3 (06:28→21:43)
--- NOTE | 2018-02-28 07:37 | General Progress Note ---
Assessment/Plan Problem List: (1) Sepsis ICD Codes: A41.9 - Sepsis, unspecified organism SNOMED: 34272045 (2) Encephalopathy ICD Codes: G93.40 - Encephalopathy, unspecified SNOMED: 66218156 (3) Functional quadriplegia ICD Codes: R53.2 - Functional quadriplegia SNOMED: 708845323897295 (4) Prerenal azotemia ICD Codes: R79.89 - Other specified abnormal findings of blood chemistry SNOMED: 960042695 (5) Anemia ICD Codes: D64.9 - Anemia, unspecified SNOMED: 102351546 Qualifiers: Qualified Codes: D64.9 - Anemia, unspecified (6) Proteinuria ICD Codes: R80.9 - Proteinuria, unspecified SNOMED: 89369862 Qualifiers: Qualified Codes: R80.9 - Proteinuria, unspecified (7) Dehydration ICD Codes: E86.0 - Dehydration SNOMED: 43215004 (8) UTI (urinary tract infection) ICD Codes: N39.0 - Urinary tract infection, site not specified SNOMED: 74615374 Qualifiers: Qualified Codes: N30.00 - Acute cystitis without hematuria Status: stable, progressing Assessment/Plan iv abx per id new gt per gi follow up cultures vent resp rx gt feeds increase water flush sz rx thyroid replacement. wound care Subjective ROS Limited/Unobtainable: Yes Constitutional: Reports: malaise, weakness HEENT: Reports: no symptoms Cardiovascular: Reports: no symptoms Respiratory: Reports: sputum Gastrointestinal/Abdominal: Reports: difficulty swallowing Genitourinary: Reports: no symptoms Neurologic/Psychiatric: Reports: pre-existing deficit Endocrine: Reports: no symptoms Hematologic/Lymphatic: Reports: no symptoms Allergies: Coded Allergies: No Known Allergies (Unverified , 02/23/18) All Systems: reviewed and negative except above Subjective no events. GT temporarily repaired. new gt scheduled for today. no fevers or chills. remains poorly responsive. ID appreciated. Objective Last 24 Hour Vital Signs Date Time Temp Pulse Resp B/P (MAP) Pulse Ox O2 Delivery O2 Flow Rate FiO2 02/28/18 06:48 61 16 30 02/28/18 05:20 60 17 30 02/28/18 04:00 58 02/28/18 04:00 98.0 63 16 160/58 100 Mechanical Ventilator 30 98.0 02/28/18 03:29 64 17 30 02/28/18 01:12 55 16 30 02/28/18 00:00 97.7 68 18 149/71 98 Mechanical Ventilator 30 97.7 02/27/18 23:23 63 02/27/18 22:49 54 16 30 02/27/18 20:49 57 16 30 02/27/18 20:36 56 02/27/18 20:00 98.0 62 16 157/76 100 Mechanical Ventilator 30 98.0 02/27/18 19:40 62 16 30 02/27/18 16:42 69 16 30 02/27/18 16:00 97.2 76 16 128/63 100 Mechanical Ventilator 30 97.2 02/27/18 16:00 65 02/27/18 14:58 66 16 30 02/27/18 12:42 74 20 30 02/27/18 12:00 97.5 69 16 159/78 100 Mechanical Ventilator 30 97.5 02/27/18 12:00 70 02/27/18 11:16 72 16 30 02/27/18 10:25 69 17 30 02/27/18 08:00 97.2 52 16 135/56 100 Mechanical Ventilator 97.2 02/27/18 08:00 56 Intake and Output 02/27/18 02/28/18 19:00 07:00 Intake Total 1000 ml 840 ml Output Total 750 ml Balance 250 ml 840 ml Intake Free Water 200 ml 300 ml IV Total 110 ml Tube Feeding 440 ml 400 ml Other 360 ml 30 ml Output Urine Total 450 ml Stool Total 300 ml # Bowel Movements 3 3 Laboratory Tests 02/28/18 03:30: Sodium Level 145, Potassium Level 4.2, Chloride Level 111H, Carbon Dioxide Level 23, Anion Gap 11, Blood Urea Nitrogen 43H, Creatinine 0.9, Estimat Glomerular Filtration Rate > 60, Glucose Level 157H, Calcium Level 9.3, Total Bilirubin 0.1L, Aspartate Amino Transf (AST/SGOT) 31, Alanine Aminotransferase ( ALT/SGPT) 19, Alkaline Phosphatase 176H, Total Protein 6.5, Albumin 1.7L, Globulin 4.8, Albumin/Globulin Ratio 0.4L Height (Feet): 5 Height (Inches): 4.00 Weight (Pounds): 218 Edema: no edema noted Arm (L), no edema noted Arm (R), no edema noted Leg (L), no edema noted Leg (R), no edema noted Pedal (L), no edema noted Pedal (R), no edema noted Generalized Objective General Appearance: WD/WN, lethargic, confused Neck: normal alignment Cardiovascular: normal peripheral pulses, normal rate, regular rhythm Respiratory/Chest: chest wall non-tender, lungs clear, normal breath sounds Abdomen: normal bowel sounds, non tender, soft, no organomegaly Edema: mild edema Neurologic: unresponsive, aphasia DIPAK OCONNELL February 28, 2018 07:37
--- NOTE | 2018-02-28 07:55 | Nephrology Progress Note ---
Assessment/Plan Assessment/Plan 1. AMEE- resolved 2. Anasarca- dependant edema much improved. One dose of lasix today - due to immobilization/low oncotic pressure from hypoalbuminemia, Alb 2.1, high protein Nephro TF's 3. Resp FL- chronic, trached on vent 4. Elevated BUN- stable. Much improved - OK for DC from renal point 5. Hypokalemia- corrected 6. hypothyroid- per PCP mgmt Subjective Date patient seen: February 28, 2018 Time patient seen: 07:53 ROS Limited/Unobtainable: Yes Allergies: Coded Allergies: No Known Allergies (Unverified , 02/23/18) Subjective Patient trached on vent chronic Objective Last 24 Hour Vital Signs Date Time Temp Pulse Resp B/P (MAP) Pulse Ox O2 Delivery O2 Flow Rate FiO2 02/28/18 06:48 61 16 30 02/28/18 05:20 60 17 30 02/28/18 04:00 58 02/28/18 04:00 98.0 63 16 160/58 100 Mechanical Ventilator 30 98.0 02/28/18 03:29 64 17 30 02/28/18 01:12 55 16 30 02/28/18 00:00 97.7 68 18 149/71 98 Mechanical Ventilator 30 97.7 02/27/18 23:23 63 02/27/18 22:49 54 16 30 02/27/18 20:49 57 16 30 02/27/18 20:36 56 02/27/18 20:00 98.0 62 16 157/76 100 Mechanical Ventilator 30 98.0 02/27/18 19:40 62 16 30 02/27/18 16:42 69 16 30 02/27/18 16:00 97.2 76 16 128/63 100 Mechanical Ventilator 30 97.2 02/27/18 16:00 65 02/27/18 14:58 66 16 30 02/27/18 12:42 74 20 30 02/27/18 12:00 97.5 69 16 159/78 100 Mechanical Ventilator 30 97.5 02/27/18 12:00 70 02/27/18 11:16 72 16 30 02/27/18 10:25 69 17 30 02/27/18 08:00 97.2 52 16 135/56 100 Mechanical Ventilator 97.2 02/27/18 08:00 56 Intake and Output 02/27/18 02/28/18 19:00 07:00 Intake Total 1000 ml 840 ml Output Total 750 ml Balance 250 ml 840 ml Intake Free Water 200 ml 300 ml IV Total 110 ml Tube Feeding 440 ml 400 ml Other 360 ml 30 ml Output Urine Total 450 ml Stool Total 300 ml # Bowel Movements 3 3 Laboratory Tests 02/28/18 03:30: Sodium Level 145, Potassium Level 4.2, Chloride Level 111H, Carbon Dioxide Level 23, Anion Gap 11, Blood Urea Nitrogen 43H, Creatinine 0.9, Estimat Glomerular Filtration Rate > 60, Glucose Level 157H, Calcium Level 9.3, Total Bilirubin 0.1L, Aspartate Amino Transf (AST/SGOT) 31, Alanine Aminotransferase ( ALT/SGPT) 19, Alkaline Phosphatase 176H, Total Protein 6.5, Albumin 1.7L, Globulin 4.8, Albumin/Globulin Ratio 0.4L Height (Feet): 5 Height (Inches): 4.00 Weight (Pounds): 218 General Appearance: WD/WN, no apparent distress EENT: PERRL/EOMI, normal ENT inspection Neck: normal alignment, supple Cardiovascular: normal rate, regular rhythm Respiratory/Chest: lungs clear, normal breath sounds Abdomen: normal bowel sounds, non tender Edema: 2+ Arm (L), 2+ Arm (R), 2+ Leg (L), 2+ Leg (R), 2+ Pedal (L), 2+ Pedal ( R), 2+ Generalized Harpal Pan M.D. February 28, 2018 07:55
[2018-02-28 08:00] VITALS: BP 158/66
--- NOTE | 2018-02-28 08:31 | Pulmonology Progress Note ---
Assessment/Plan Assessment/Plan IMPRESSION respiratory failure diffuse edema renal failure cellulitis possible chronic encephalopathy trach gt solitary kidney UTI PLAN vent as is maintain meds renal evaluation noted and clearance reviewed skin care levaquin wound care nutrition protein supplementation dc to snf order written yesterday; awaiting placement impression, plan, and exam edited and reviewed in detail care discussed with RN Subjective ROS Limited/Unobtainable: Yes Allergies: Coded Allergies: No Known Allergies (Unverified , 02/23/18) Subjective all appreciated and reviewed on vent; cultures reviewed edema stable Objective Last 24 Hour Vital Signs Date Time Temp Pulse Resp B/P (MAP) Pulse Ox O2 Delivery O2 Flow Rate FiO2 02/28/18 08:00 96.0 64 16 158/66 100 Mechanical Ventilator 30 96.0 02/28/18 06:48 61 16 30 02/28/18 05:20 60 17 30 02/28/18 04:00 58 02/28/18 04:00 98.0 63 16 160/58 100 Mechanical Ventilator 30 98.0 02/28/18 03:29 64 17 30 02/28/18 01:12 55 16 30 02/28/18 00:00 97.7 68 18 149/71 98 Mechanical Ventilator 30 97.7 02/27/18 23:23 63 02/27/18 22:49 54 16 30 02/27/18 20:49 57 16 30 02/27/18 20:36 56 02/27/18 20:00 98.0 62 16 157/76 100 Mechanical Ventilator 30 98.0 02/27/18 19:40 62 16 30 02/27/18 16:42 69 16 30 02/27/18 16:00 97.2 76 16 128/63 100 Mechanical Ventilator 30 97.2 02/27/18 16:00 65 02/27/18 14:58 66 16 30 02/27/18 12:42 74 20 30 02/27/18 12:00 97.5 69 16 159/78 100 Mechanical Ventilator 30 97.5 02/27/18 12:00 70 02/27/18 11:16 72 16 30 02/27/18 10:25 69 17 30 Intake and Output 02/27/18 02/28/18 19:00 07:00 Intake Total 1000 ml 840 ml Output Total 750 ml Balance 250 ml 840 ml Intake Free Water 200 ml 300 ml IV Total 110 ml Tube Feeding 440 ml 400 ml Other 360 ml 30 ml Output Urine Total 450 ml Stool Total 300 ml # Bowel Movements 3 3 Objective WDWN trach poor LOC reduced breath sounds bilaterally without rhonchi or wheeze [id number] without MRG NABS nontender no HSM no CC anasarca improved GT nonfocal Microbiology Date/Time Source Procedure Growth Status 02/25/18 11:30 Stool Clostridium difficile Toxin Assay - Final Complete Laboratory Tests 02/28/18 03:30: Sodium Level 145, Potassium Level 4.2, Chloride Level 111H, Carbon Dioxide Level 23, Anion Gap 11, Blood Urea Nitrogen 43H, Creatinine 0.9, Estimat Glomerular Filtration Rate > 60, Glucose Level 157H, Calcium Level 9.3, Total Bilirubin 0.1L, Aspartate Amino Transf (AST/SGOT) 31, Alanine Aminotransferase ( ALT/SGPT) 19, Alkaline Phosphatase 176H, Total Protein 6.5, Albumin 1.7L, Globulin 4.8, Albumin/Globulin Ratio 0.4L Current Medications Medications (Trade) Dose Ordered Sig/Aashish Route PRN Reason Start Time Stop Time Status Last Admin Dose Admin Acetaminophen (Tylenol) 650 mg Q4H PRN GT Mild Pain/Temp > 100.5 02/24/18 08:00 03/26/18 07:59 Ascorbic Acid (Vitamin C) 500 mg DAILY GT 02/25/18 09:00 03/26/18 08:59 02/27/18 09:18 Bisacodyl (Dulcolax) 10 mg DAILYPRN PRN RECTAL Constipation 02/24/18 08:00 03/26/18 07:59 Dextrose (Dextrose 50%) 25 ml STAT PRN IV Hypoglycemia 02/24/18 07:45 03/26/18 07:44 Dextrose (Dextrose 50%) 50 ml STAT PRN IV Hypoglycemia 02/24/18 07:45 03/26/18 07:44 02/25/18 06:05 Diphenhydramine HCl (Benadryl) 25 mg Q4HR PRN GT Itching 02/24/18 08:00 03/26/18 07:59 Ferrous Sulfate (Feosol) 330 mg BID NG 02/24/18 18:00 03/26/18 17:59 02/27/18 17:46 Furosemide (Lasix) 20 mg ONCE IV 02/28/18 08:00 02/28/18 09:00 Heparin Sodium (Porcine) (Heparin 5000 units/ml) 5,000 units EVERY 12 HOURS SUBQ 02/24/18 21:00 03/26/18 20:59 02/27/18 23:50 Insulin Aspart (NovoLOG) Q6HR SUBQ 02/25/18 00:00 03/26/18 11:29 02/28/18 06:32 Insulin Detemir (Levemir) 12 units BEDTIME SUBQ 02/24/18 21:00 03/26/18 20:59 02/27/18 23:54 Levetiracetam (Keppra) 1,000 mg BID GT 02/24/18 18:00 03/26/18 17:59 02/27/18 17:46 Levofloxacin (Levaquin) 250 mg DAILY ORAL 02/27/18 09:00 03/06/18 08:59 02/27/18 09:19 Levothyroxine Sodium (Synthroid) 50 mcg DAILY@0630 ORAL 02/26/18 06:30 03/28/18 06:29 02/28/18 06:27 Magnesium Hydroxide (Mom) 30 ml DAILYPRN PRN ORAL Constipation 02/24/18 08:00 03/26/18 07:59 Ondansetron HCl (Zofran) 4 mg Q6H PRN GT Nausea & Vomiting 02/24/18 08:00 03/26/18 07:59 Sodium Phosphate (Fleet's Sodium Phosl Enema) 133 ml DAILY PRN RECTAL Constipation 02/24/18 08:00 03/26/18 07:59 Tigecycline 50 mg/ Dextrose 110 ml @ 220 mls/hr EVERY 12 HOURS IVPB 02/27/18 21:00 03/06/18 20:59 02/27/18 23:48 Valproic Acid (Depakene) 750 mg Q8HR NG 02/24/18 14:00 03/26/18 13:59 02/28/18 06:28 Edinson Barton MD February 28, 2018 08:31
[2018-02-28] MEDS: Tigecycline 50 MG in D5W 110 ML IVPB SCH ×2 (09:08→21:20)
[2018-02-28] MEDS: Ferrous Sulfate 300 MG/5 ML UDC NG SCH ×2 (09:08→17:39)
[2018-02-28] MEDS: Ascorbic Acid 500mg tab GT SCH (09:09)
[2018-02-28] MEDS: Heparin 5000 units/ml inj SUBQ SCH ×2 (09:10→21:21)
[2018-02-28 10:18] LABS: BASOPHILS % (AUTO) 0.6 % (0.0-2.0); EOSINOPHILS % (AUTO) 6.9 % (0.0-3.0); HEMATOCRIT 31.1 % (37.0-47.0); HEMOGLOBIN 9.9 G/DL (12.0-16.0); LYMPHOCYTES % (AUTO) 28.7 % (20.0-45.0); MEAN CORPUSCULAR VOLUME 98 FL (80-99); MONOCYTES % (AUTO) 6.7 % (1.0-10.0); PLATELET COUNT 160 K/UL (150-450); RED BLOOD COUNT 3.19 M/UL (4.20-5.40); RED CELL DISTRIBUTION WIDTH 16.1 % (11.6-14.8); WHITE BLOOD COUNT 6.2 K/UL (4.8-10.8)
--- NOTE | 2018-02-28 10:46 | Infectious Diseases Prog Note ---
Assessment/Plan Assessment/Plan A; UTI with Proteus & Klebsiella VDRF Anemia Morbid obesity Encephalopathy P: Continue Levaquin & Tygacil X 3 days Subjective ROS Limited/Unobtainable: Yes Allergies: Coded Allergies: No Known Allergies (Unverified , 02/23/18) Objective Vital Signs Last 24 Hour Vital Signs Date Time Temp Pulse Resp B/P (MAP) Pulse Ox O2 Delivery O2 Flow Rate FiO2 02/28/18 08:30 63 16 30 02/28/18 08:00 96.0 64 16 158/66 100 Mechanical Ventilator 30 96.0 02/28/18 08:00 55 02/28/18 06:48 61 16 30 02/28/18 05:20 60 17 30 02/28/18 04:00 58 02/28/18 04:00 98.0 63 16 160/58 100 Mechanical Ventilator 30 98.0 02/28/18 03:29 64 17 30 02/28/18 01:12 55 16 30 02/28/18 00:00 97.7 68 18 149/71 98 Mechanical Ventilator 30 97.7 02/27/18 23:23 63 02/27/18 22:49 54 16 30 02/27/18 20:49 57 16 30 02/27/18 20:36 56 02/27/18 20:00 98.0 62 16 157/76 100 Mechanical Ventilator 30 98.0 02/27/18 19:40 62 16 30 02/27/18 16:42 69 16 30 02/27/18 16:00 97.2 76 16 128/63 100 Mechanical Ventilator 30 97.2 02/27/18 16:00 65 02/27/18 14:58 66 16 30 02/27/18 12:42 74 20 30 02/27/18 12:00 97.5 69 16 159/78 100 Mechanical Ventilator 30 97.5 02/27/18 12:00 70 02/27/18 11:16 72 16 30 Height (Feet): 5 Height (Inches): 4.00 Weight (Pounds): 218 HEENT: status post trach Respiratory/Chest: decreased breath sounds, other - on ventilator Cardiovascular: normal rate Abdomen: soft, non tender, other - GT feeding Genitourinary: other - Pichardo catheter Extremities: no edema Neurologic/Psychiatric: unresponsiveness Microbiology Date/Time Source Procedure Growth Status 02/25/18 11:30 Stool Clostridium difficile Toxin Assay - Final Complete Laboratory Tests Test 02/28/18 03:30 White Blood Count Pending Red Blood Count Pending Hemoglobin Pending Hematocrit Pending Mean Corpuscular Volume Pending Mean Corpuscular Hemoglobin Pending Mean Corpuscular Hemoglobin Concent Pending Red Cell Distribution Width Pending Platelet Count Pending Mean Platelet Volume Pending Neutrophils (%) (Auto) Pending Lymphocytes (%) (Auto) Pending Monocytes (%) (Auto) Pending Eosinophils (%) (Auto) Pending Basophils (%) (Auto) Pending Sodium Level 145 MMOL/L (136-145) Potassium Level 4.2 MMOL/L (3.5-5.1) Chloride Level 111 MMOL/L (98-107) H Carbon Dioxide Level 23 MMOL/L (21-32) Anion Gap 11 mmol/L (5-15) Blood Urea Nitrogen 43 mg/dL (7-18) H Creatinine 0.9 MG/DL (0.55-1.30) Estimat Glomerular Filtration Rate > 60 mL/min (>60) Glucose Level 157 MG/DL (74-106) H Calcium Level 9.3 MG/DL (8.5-10.1) Total Bilirubin 0.1 MG/DL (0.2-1.0) L Aspartate Amino Transf (AST/SGOT) 31 U/L (15-37) Alanine Aminotransferase (ALT/SGPT) 19 U/L (12-78) Alkaline Phosphatase 176 U/L (46-116) H Total Protein 6.5 G/DL (6.4-8.2) Albumin 1.7 G/DL (3.4-5.0) L Globulin 4.8 g/dL Albumin/Globulin Ratio 0.4 (1.0-2.7) L Current Medications Medications (Trade) Dose Ordered Sig/Aashish Route PRN Reason Start Time Stop Time Status Last Admin Dose Admin Acetaminophen (Tylenol) 650 mg Q4H PRN GT Mild Pain/Temp > 100.5 02/24/18 08:00 03/26/18 07:59 Ascorbic Acid (Vitamin C) 500 mg DAILY GT 02/25/18 09:00 03/26/18 08:59 02/28/18 09:09 Bisacodyl (Dulcolax) 10 mg DAILYPRN PRN RECTAL Constipation 02/24/18 08:00 03/26/18 07:59 Dextrose (Dextrose 50%) 25 ml STAT PRN IV Hypoglycemia 02/24/18 07:45 03/26/18 07:44 Dextrose (Dextrose 50%) 50 ml STAT PRN IV Hypoglycemia 02/24/18 07:45 03/26/18 07:44 02/25/18 06:05 Diphenhydramine HCl (Benadryl) 25 mg Q4HR PRN GT Itching 02/24/18 08:00 03/26/18 07:59 Ferrous Sulfate (Feosol) 330 mg BID NG 02/24/18 18:00 03/26/18 17:59 02/28/18 09:08 Heparin Sodium (Porcine) (Heparin 5000 units/ml) 5,000 units EVERY 12 HOURS SUBQ 02/24/18 21:00 03/26/18 20:59 02/28/18 09:10 Insulin Aspart (NovoLOG) Q6HR SUBQ 02/25/18 00:00 03/26/18 11:29 02/28/18 06:32 Insulin Detemir (Levemir) 12 units BEDTIME SUBQ 02/24/18 21:00 03/26/18 20:59 02/27/18 23:54 Levetiracetam (Keppra) 1,000 mg BID GT 02/24/18 18:00 03/26/18 17:59 02/28/18 09:09 Levofloxacin (Levaquin) 250 mg DAILY ORAL 02/27/18 09:00 03/06/18 08:59 02/28/18 09:09 Levothyroxine Sodium (Synthroid) 50 mcg DAILY@0630 ORAL 02/26/18 06:30 03/28/18 06:29 02/28/18 06:27 Magnesium Hydroxide (Mom) 30 ml DAILYPRN PRN ORAL Constipation 02/24/18 08:00 03/26/18 07:59 Ondansetron HCl (Zofran) 4 mg Q6H PRN GT Nausea & Vomiting 02/24/18 08:00 03/26/18 07:59 Sodium Phosphate (Fleet's Sodium Phosl Enema) 133 ml DAILY PRN RECTAL Constipation 02/24/18 08:00 03/26/18 07:59 Tigecycline 50 mg/ Dextrose 110 ml @ 220 mls/hr EVERY 12 HOURS IVPB 02/27/18 21:00 03/06/18 20:59 02/28/18 09:08 Valproic Acid (Depakene) 750 mg Q8HR NG 02/24/18 14:00 03/26/18 13:59 02/28/18 06:28 NARCISA GREGG February 28, 2018 10:46
[2018-02-28 12:00] VITALS: BP 138/76
[2018-02-28 16:00] VITALS: BP 144/85
[2018-02-28 20:00] VITALS: BP 146/83
[2018-02-28] MEDS: Levemir Flexpen SUBQ SCH (21:22)
[2018-02-28] MEDS ORDERED: NS 275ml ONE ×2 (22:17→22:29)
[2018-02-28] MEDS ORDERED: Sterile Water Irrig 1000ml IRRIG ONE (22:17)
[2018-02-28] MEDS ORDERED: NS 500ML ONE (22:29)
[2018-02-28] MEDS ORDERED: D5NS 1000ml IV ONE (22:29)
[2018-02-28] MEDS ORDERED: Tubing IV Secondary IV ONE (22:29)
--- NOTE | 2018-02-28 23:48 | General Progress Note ---
Assessment/Plan Assessment/Plan Assessment Anemia Resp failure dysphaiga Recommendations continue TF GT care Periodic CBC Subjective Allergies: Coded Allergies: No Known Allergies (Unverified , 02/23/18) Subjective NAD tolerating TF Objective Last 24 Hour Vital Signs Date Time Temp Pulse Resp B/P (MAP) Pulse Ox O2 Delivery O2 Flow Rate FiO2 02/28/18 23:25 55 17 Mechanical Ventilator 60.0 32 02/28/18 23:04 55 17 30 02/28/18 21:13 63 16 30 02/28/18 20:00 30 02/28/18 20:00 97.4 65 18 146/83 100 Mechanical Ventilator 30 97.4 02/28/18 19:16 64 02/28/18 18:54 62 17 30 02/28/18 17:00 3 16 30 02/28/18 16:00 30 02/28/18 16:00 95.0 72 19 144/85 100 Mechanical Ventilator 30 95.0 02/28/18 15:28 59 02/28/18 14:49 60 16 30 02/28/18 12:40 62 16 30 02/28/18 12:00 58 02/28/18 12:00 30 02/28/18 12:00 95.0 67 17 138/76 100 Mechanical Ventilator 30 95.0 02/28/18 10:40 60 16 30 02/28/18 08:30 63 16 30 02/28/18 08:00 30 02/28/18 08:00 96.0 64 16 158/66 100 Mechanical Ventilator 30 96.0 02/28/18 08:00 55 02/28/18 06:48 61 16 30 02/28/18 05:20 60 17 30 02/28/18 04:00 58 02/28/18 04:00 98.0 63 16 160/58 100 Mechanical Ventilator 30 98.0 02/28/18 03:29 64 17 30 02/28/18 01:12 55 16 30 02/28/18 00:00 97.7 68 18 149/71 98 Mechanical Ventilator 30 97.7 Intake and Output 02/27/18 02/28/18 19:00 07:00 Intake Total 1000 ml 840 ml Output Total 750 ml Balance 250 ml 840 ml Intake Free Water 200 ml 300 ml IV Total 110 ml Tube Feeding 440 ml 400 ml Other 360 ml 30 ml Output Urine Total 450 ml Stool Total 300 ml # Bowel Movements 3 3 Laboratory Tests 02/28/18 03:30: White Blood Count 6.2, Red Blood Count 3.19L, Hemoglobin 9.9L, Hematocrit 31.1L , Mean Corpuscular Volume 98, Mean Corpuscular Hemoglobin 31.1H, Mean Corpuscular Hemoglobin Concent 31.9L, Red Cell Distribution Width 16.1H, Platelet Count 160, Mean Platelet Volume 5.8L, Neutrophils (%) (Auto) 57.0, Lymphocytes (%) (Auto) 28.7, Monocytes (%) (Auto) 6.7, Eosinophils (%) (Auto) 6.9H, Basophils (%) (Auto) 0.6, Sodium Level 145, Potassium Level 4.2, Chloride Level 111H, Carbon Dioxide Level 23, Anion Gap 11, Blood Urea Nitrogen 43H, Creatinine 0.9, Estimat Glomerular Filtration Rate > 60, Glucose Level 157H, Calcium Level 9.3, Total Bilirubin 0.1L, Aspartate Amino Transf (AST/SGOT) 31, Alanine Aminotransferase (ALT/SGPT) 19, Alkaline Phosphatase 176H, Total Protein 6.5, Albumin 1.7L, Globulin 4.8, Albumin/Globulin Ratio 0.4L Height (Feet): 5 Height (Inches): 4.00 Weight (Pounds): 218 Objective WDWN WW no events tolerating op diet Enrico Nunez MD February 28, 2018 23:47
[2018-03-01] VITALS: BP 114/52
[2018-03-01 04:00] VITALS: BP 110/73
[2018-03-01 04:59] LABS: ANION GAP 10 mmol/L (5-15); BLOOD UREA NITROGEN 56 mg/dL (7-18); CALCIUM 9.4 MG/DL (8.5-10.1); CARBON DIOXIDE 25 MMOL/L (21-32); CHLORIDE 108 MMOL/L (98-107); CREATININE 0.9 MG/DL (0.55-1.30); POTASSIUM 3.9 MMOL/L (3.5-5.1); SODIUM 143 MMOL/L (136-145)
[2018-03-01] MEDS: NovoLOG Insulin Flexpen SUBQ SCH ×3 (06:00→18:00)
[2018-03-01] MEDS: Valproic Acid 250mg/5ml Liquid NG SCH ×2 (06:37→14:03)
[2018-03-01 08:00] VITALS: BP 134/81
--- NOTE | 2018-03-01 08:05 | Nephrology Progress Note ---
Assessment/Plan Assessment/Plan 1. AMEE- resolved. OK for DC from renal point 2. Anasarca- dependant edema much improved. - due to immobilization/low oncotic pressure from hypoalbuminemia, -Alb 2.1, high protein Nephro TF's 3. Resp FL- chronic, trached on vent 4. Elevated BUN- stable. Much improved. PRN free water - OK for DC from renal point 5. Hypokalemia- corrected 6. Hypothyroid- per PCP mgmt Subjective Date patient seen: March 01, 2018 Time patient seen: 08:04 ROS Limited/Unobtainable: Yes Allergies: Coded Allergies: No Known Allergies (Unverified , 02/23/18) Subjective Patient trached on vent chronic. No changes Objective Last 24 Hour Vital Signs Date Time Temp Pulse Resp B/P (MAP) Pulse Ox O2 Delivery O2 Flow Rate FiO2 03/01/18 05:01 62 16 30 03/01/18 04:00 96.6 71 12 110/73 100 Mechanical Ventilator 30 96.6 03/01/18 04:00 30 03/01/18 03:45 64 03/01/18 02:33 56 17 30 03/01/18 01:18 59 16 30 03/01/18 00:00 97.4 66 17 114/52 100 Mechanical Ventilator 30 97.4 02/28/18 23:28 55 02/28/18 23:25 55 17 Mechanical Ventilator 60.0 32 02/28/18 23:04 55 17 30 02/28/18 21:13 63 16 30 02/28/18 20:00 30 02/28/18 20:00 97.4 65 18 146/83 100 Mechanical Ventilator 30 97.4 02/28/18 19:16 64 02/28/18 18:54 62 17 30 02/28/18 17:00 3 16 30 02/28/18 16:00 30 02/28/18 16:00 95.0 72 19 144/85 100 Mechanical Ventilator 30 95.0 02/28/18 15:28 59 02/28/18 14:49 60 16 30 02/28/18 12:40 62 16 30 02/28/18 12:00 58 02/28/18 12:00 30 02/28/18 12:00 95.0 67 17 138/76 100 Mechanical Ventilator 30 95.0 02/28/18 10:40 60 16 30 02/28/18 08:30 63 16 30 Intake and Output 02/28/18 03/01/18 19:00 07:00 Intake Total 970 ml 910 ml Output Total 2600 ml Balance -1630 ml 910 ml Intake Free Water 380 ml 300 ml IV Total 110 ml 110 ml Tube Feeding 480 ml 400 ml Other 100 ml Output Urine Total 1900 ml Stool Total 700 ml # Bowel Movements 3 Laboratory Tests 03/01/18 04:20: Sodium Level 143, Potassium Level 3.9, Chloride Level 108H, Carbon Dioxide Level 25, Anion Gap 10, Blood Urea Nitrogen 56H, Creatinine 0.9, Estimat Glomerular Filtration Rate > 60, Glucose Level 94, Calcium Level 9.4 Height (Feet): 5 Height (Inches): 4.00 Weight (Pounds): 218 General Appearance: WD/WN, no apparent distress EENT: PERRL/EOMI, normal ENT inspection Neck: normal alignment, supple Cardiovascular: normal rate, regular rhythm Respiratory/Chest: rhonchi - bilaterally Abdomen: normal bowel sounds, non tender Edema: 1+ Arm (L), 1+ Arm (R), 1+ Leg (L), 1+ Leg (R), 1+ Pedal (L), 1+ Pedal ( R), 1+ Generalized Harpal Pan M.D. March 01, 2018 08:05
--- NOTE | 2018-03-01 08:20 | General Progress Note ---
Assessment/Plan Problem List: (1) Sepsis ICD Codes: A41.9 - Sepsis, unspecified organism SNOMED: 23580679 (2) Encephalopathy ICD Codes: G93.40 - Encephalopathy, unspecified SNOMED: 25307112 (3) Functional quadriplegia ICD Codes: R53.2 - Functional quadriplegia SNOMED: 649809944233816 (4) Prerenal azotemia ICD Codes: R79.89 - Other specified abnormal findings of blood chemistry SNOMED: 353196176 (5) Anemia ICD Codes: D64.9 - Anemia, unspecified SNOMED: 135878131 Qualifiers: Qualified Codes: D64.9 - Anemia, unspecified (6) Proteinuria ICD Codes: R80.9 - Proteinuria, unspecified SNOMED: 95316577 Qualifiers: Qualified Codes: R80.9 - Proteinuria, unspecified (7) Dehydration ICD Codes: E86.0 - Dehydration SNOMED: 28728983 (8) UTI (urinary tract infection) ICD Codes: N39.0 - Urinary tract infection, site not specified SNOMED: 56950409 Qualifiers: Qualified Codes: N30.00 - Acute cystitis without hematuria Status: stable, progressing Assessment/Plan iv abx per id gt feeds vent resp rx sz rx thyroid replacement. wound care dc planning Subjective ROS Limited/Unobtainable: Yes Constitutional: Reports: malaise, weakness HEENT: Reports: no symptoms Cardiovascular: Reports: no symptoms Respiratory: Reports: cough, sputum Gastrointestinal/Abdominal: Reports: difficulty swallowing Genitourinary: Reports: no symptoms Neurologic/Psychiatric: Reports: pre-existing deficit Endocrine: Reports: no symptoms Hematologic/Lymphatic: Reports: no symptoms Allergies: Coded Allergies: No Known Allergies (Unverified , 02/23/18) All Systems: reviewed and negative except above Subjective no events. gt replaced. tolerating feeds. no fevers. labs improved. on abx Objective Last 24 Hour Vital Signs Date Time Temp Pulse Resp B/P (MAP) Pulse Ox O2 Delivery O2 Flow Rate FiO2 03/01/18 05:01 62 16 30 03/01/18 04:00 96.6 71 12 110/73 100 Mechanical Ventilator 30 96.6 03/01/18 04:00 30 03/01/18 03:45 64 03/01/18 02:33 56 17 30 5/17/18 01:18 59 16 30 03/01/18 00:00 97.4 66 17 114/52 100 Mechanical Ventilator 30 97.4 02/28/18 23:28 55 02/28/18 23:25 55 17 Mechanical Ventilator 60.0 32 02/28/18 23:04 55 17 30 02/28/18 21:13 63 16 30 02/28/18 20:00 30 02/28/18 20:00 97.4 65 18 146/83 100 Mechanical Ventilator 30 97.4 02/28/18 19:16 64 02/28/18 18:54 62 17 30 02/28/18 17:00 3 16 30 02/28/18 16:00 30 02/28/18 16:00 95.0 72 19 144/85 100 Mechanical Ventilator 30 95.0 02/28/18 15:28 59 02/28/18 14:49 60 16 30 02/28/18 12:40 62 16 30 02/28/18 12:00 58 02/28/18 12:00 30 02/28/18 12:00 95.0 67 17 138/76 100 Mechanical Ventilator 30 95.0 02/28/18 10:40 60 16 30 02/28/18 08:30 63 16 30 Intake and Output 02/28/18 03/01/18 19:00 07:00 Intake Total 970 ml 910 ml Output Total 2600 ml Balance -1630 ml 910 ml Intake Free Water 380 ml 300 ml IV Total 110 ml 110 ml Tube Feeding 480 ml 400 ml Other 100 ml Output Urine Total 1900 ml Stool Total 700 ml # Bowel Movements 3 Laboratory Tests 03/01/18 04:20: Sodium Level 143, Potassium Level 3.9, Chloride Level 108H, Carbon Dioxide Level 25, Anion Gap 10, Blood Urea Nitrogen 56H, Creatinine 0.9, Estimat Glomerular Filtration Rate > 60, Glucose Level 94, Calcium Level 9.4 Height (Feet): 5 Height (Inches): 4.00 Weight (Pounds): 218 Objective General Appearance: WD/WN, lethargic, confused Neck: normal alignment Cardiovascular: normal peripheral pulses, normal rate, regular rhythm Respiratory/Chest: chest wall non-tender, lungs clear, normal breath sounds Abdomen: normal bowel sounds, non tender, soft, no organomegaly Edema: mild edema Neurologic: unresponsive, aphasia DIPAK OCONNELL March 01, 2018 08:20
[2018-03-01] MEDS: Heparin 5000 units/ml inj SUBQ SCH (09:46)
--- NOTE | 2018-03-01 09:47 | Infectious Diseases Prog Note ---
Assessment/Plan Assessment/Plan A; UTI with Proteus & Klebsiella VDRF Anemia Morbid obesity Encephalopathy P: Continue Levaquin & Tygacil X 2 days Subjective ROS Limited/Unobtainable: Yes Allergies: Coded Allergies: No Known Allergies (Unverified , 02/23/18) Objective Vital Signs Last 24 Hour Vital Signs Date Time Temp Pulse Resp B/P (MAP) Pulse Ox O2 Delivery O2 Flow Rate FiO2 03/01/18 08:50 67 16 30 03/01/18 08:27 64 03/01/18 08:00 30 03/01/18 08:00 96.8 71 13 134/81 95 Mechanical Ventilator 30 96.8 03/01/18 06:50 66 17 30 03/01/18 05:01 62 16 30 03/01/18 04:00 96.6 71 12 110/73 100 Mechanical Ventilator 30 96.6 03/01/18 04:00 30 03/01/18 03:45 64 03/01/18 02:33 56 17 30 03/01/18 01:18 59 16 30 03/01/18 00:00 97.4 66 17 114/52 100 Mechanical Ventilator 30 97.4 02/28/18 23:28 55 02/28/18 23:25 55 17 Mechanical Ventilator 60.0 32 02/28/18 23:04 55 17 30 02/28/18 21:13 63 16 30 02/28/18 20:00 30 02/28/18 20:00 97.4 65 18 146/83 100 Mechanical Ventilator 30 97.4 02/28/18 19:16 64 02/28/18 18:54 62 17 30 02/28/18 17:00 3 16 30 02/28/18 16:00 30 02/28/18 16:00 95.0 72 19 144/85 100 Mechanical Ventilator 30 95.0 02/28/18 15:28 59 02/28/18 14:49 60 16 30 02/28/18 12:40 62 16 30 02/28/18 12:00 58 02/28/18 12:00 30 02/28/18 12:00 95.0 67 17 138/76 100 Mechanical Ventilator 30 95.0 02/28/18 10:40 60 16 30 Height (Feet): 5 Height (Inches): 4.00 Weight (Pounds): 218 HEENT: status post trach Respiratory/Chest: lungs clear, other - on ventilator Cardiovascular: normal rate Abdomen: soft, non tender, other - GT feeding Extremities: other - edema Neurologic/Psychiatric: other - opens eyes Laboratory Tests Test 03/01/18 04:20 Sodium Level 143 MMOL/L (136-145) Potassium Level 3.9 MMOL/L (3.5-5.1) Chloride Level 108 MMOL/L (98-107) H Carbon Dioxide Level 25 MMOL/L (21-32) Anion Gap 10 mmol/L (5-15) Blood Urea Nitrogen 56 mg/dL (7-18) H Creatinine 0.9 MG/DL (0.55-1.30) Estimat Glomerular Filtration Rate > 60 mL/min (>60) Glucose Level 94 MG/DL (74-106) Calcium Level 9.4 MG/DL (8.5-10.1) Current Medications Medications (Trade) Dose Ordered Sig/Aashish Route PRN Reason Start Time Stop Time Status Last Admin Dose Admin Acetaminophen (Tylenol) 650 mg Q4H PRN GT Mild Pain/Temp > 100.5 02/24/18 08:00 03/26/18 07:59 Ascorbic Acid (Vitamin C) 500 mg DAILY GT 02/25/18 09:00 03/26/18 08:59 02/28/18 09:09 Bisacodyl (Dulcolax) 10 mg DAILYPRN PRN RECTAL Constipation 02/24/18 08:00 03/26/18 07:59 Dextrose (Dextrose 50%) 25 ml STAT PRN IV Hypoglycemia 02/24/18 07:45 03/26/18 07:44 Dextrose (Dextrose 50%) 50 ml STAT PRN IV Hypoglycemia 02/24/18 07:45 03/26/18 07:44 02/25/18 06:05 Diphenhydramine HCl (Benadryl) 25 mg Q4HR PRN GT Itching 02/24/18 08:00 03/26/18 07:59 Ferrous Sulfate (Feosol) 330 mg BID NG 02/24/18 18:00 03/26/18 17:59 02/28/18 17:39 Heparin Sodium (Porcine) (Heparin 5000 units/ml) 5,000 units EVERY 12 HOURS SUBQ 02/24/18 21:00 03/26/18 20:59 02/28/18 21:21 Insulin Aspart (NovoLOG) Q6HR SUBQ 02/25/18 00:00 03/26/18 11:29 02/28/18 23:41 Insulin Detemir (Levemir) 12 units BEDTIME SUBQ 02/24/18 21:00 03/26/18 20:59 02/28/18 21:22 Levetiracetam (Keppra) 1,000 mg BID GT 02/24/18 18:00 03/26/18 17:59 02/28/18 17:40 Levofloxacin (Levaquin) 250 mg DAILY ORAL 02/27/18 09:00 03/06/18 08:59 02/28/18 09:09 Levothyroxine Sodium (Synthroid) 50 mcg DAILY@0630 ORAL 02/26/18 06:30 03/28/18 06:29 03/01/18 06:37 Magnesium Hydroxide (Mom) 30 ml DAILYPRN PRN ORAL Constipation 02/24/18 08:00 03/26/18 07:59 Ondansetron HCl (Zofran) 4 mg Q6H PRN GT Nausea & Vomiting 02/24/18 08:00 03/26/18 07:59 Sodium Phosphate (Fleet's Sodium Phosl Enema) 133 ml DAILY PRN RECTAL Constipation 02/24/18 08:00 03/26/18 07:59 Tigecycline 50 mg/ Dextrose 110 ml @ 220 mls/hr EVERY 12 HOURS IVPB 02/27/18 21:00 03/06/18 20:59 02/28/18 21:20 Valproic Acid (Depakene) 750 mg Q8HR NG 02/24/18 14:00 03/26/18 13:59 03/01/18 06:37 NARCISA GREGG March 01, 2018 09:47
[2018-03-01] MEDS: Ferrous Sulfate 300 MG/5 ML UDC NG SCH ×2 (09:49→18:00)
[2018-03-01] MEDS: Ascorbic Acid 500mg tab GT SCH (09:49)
[2018-03-01] MEDS: Tigecycline 50 MG in D5W 110 ML IVPB SCH (09:49)
[2018-03-01 12:00] VITALS: BP 139/68
[2018-03-01 16:00] VITALS: BP 116/55
--- NOTE | 2018-03-01 17:30 | General Progress Note ---
Assessment/Plan Assessment/Plan Assessment Anemia Resp failure dysphaiga s/p GT change Recommendations continue TF GT care Periodic CBC elevate HOB d/c planning Subjective Allergies: Coded Allergies: No Known Allergies (Unverified , 02/23/18) Subjective NAD tolerating TF no new events Objective Last 24 Hour Vital Signs Date Time Temp Pulse Resp B/P (MAP) Pulse Ox O2 Delivery O2 Flow Rate FiO2 03/01/18 16:56 61 16 30 03/01/18 16:00 30 03/01/18 16:00 97.5 80 21 116/55 95 Mechanical Ventilator 30 97.5 03/01/18 12:40 62 16 30 03/01/18 12:05 71 03/01/18 12:00 97.2 71 18 139/68 98 Mechanical Ventilator 30 97.2 03/01/18 12:00 30 03/01/18 11:09 60 16 30 03/01/18 08:50 67 16 30 03/01/18 08:27 64 03/01/18 08:00 30 03/01/18 08:00 96.8 71 13 134/81 95 Mechanical Ventilator 30 96.8 03/01/18 06:50 66 17 30 03/01/18 05:01 62 16 30 03/01/18 04:00 96.6 71 12 110/73 100 Mechanical Ventilator 30 96.6 03/01/18 04:00 30 03/01/18 03:45 64 03/01/18 02:33 56 17 30 03/01/18 01:18 59 16 30 03/01/18 00:00 97.4 66 17 114/52 100 Mechanical Ventilator 30 97.4 02/28/18 23:28 55 02/28/18 23:25 55 17 Mechanical Ventilator 60.0 32 02/28/18 23:04 55 17 30 02/28/18 21:13 63 16 30 02/28/18 20:00 30 02/28/18 20:00 97.4 65 18 146/83 100 Mechanical Ventilator 30 97.4 02/28/18 19:16 64 02/28/18 18:54 62 17 30 Intake and Output 02/28/18 03/01/18 19:00 07:00 Intake Total 970 ml 910 ml Output Total 2600 ml Balance -1630 ml 910 ml Intake Free Water 380 ml 300 ml IV Total 110 ml 110 ml Tube Feeding 480 ml 400 ml Other 100 ml Output Urine Total 1900 ml Stool Total 700 ml # Bowel Movements 3 Laboratory Tests 03/01/18 04:20: Sodium Level 143, Potassium Level 3.9, Chloride Level 108H, Carbon Dioxide Level 25, Anion Gap 10, Blood Urea Nitrogen 56H, Creatinine 0.9, Estimat Glomerular Filtration Rate > 60, Glucose Level 94, Calcium Level 9.4 Height (Feet): 5 Height (Inches): 4.00 Weight (Pounds): 218 Objective WDWN WW no events tolerating op diet Enrico Nunez MD March 01, 2018 17:30
--- NOTE | 2018-03-01 17:56 | Pulmonology Progress Note ---
Assessment/Plan Assessment/Plan IMPRESSION respiratory failure diffuse edema renal failure cellulitis possible chronic encephalopathy trach gt solitary kidney UTI MDR PLAN vent as is on isolation cannot dc until colonized maintain meds renal evaluation noted and clearance reviewed skin care levaquin wound care nutrition protein supplementation dc to snf order written yesterday; awaiting placement impression, plan, and exam edited and reviewed in detail care discussed with RN Subjective ROS Limited/Unobtainable: Yes Allergies: Coded Allergies: No Known Allergies (Unverified , 02/23/18) Subjective all appreciated and reviewed on vent; cultures reviewed edema stable renal function slightly worse MDR Objective Last 24 Hour Vital Signs Date Time Temp Pulse Resp B/P (MAP) Pulse Ox O2 Delivery O2 Flow Rate FiO2 03/01/18 16:56 61 16 30 03/01/18 16:00 30 03/01/18 16:00 97.5 80 21 116/55 95 Mechanical Ventilator 30 97.5 03/01/18 14:41 72 18 30 03/01/18 12:40 62 16 30 03/01/18 12:05 71 03/01/18 12:00 97.2 71 18 139/68 98 Mechanical Ventilator 30 97.2 03/01/18 12:00 30 03/01/18 11:09 60 16 30 03/01/18 08:50 67 16 30 03/01/18 08:27 64 03/01/18 08:00 30 03/01/18 08:00 96.8 71 13 134/81 95 Mechanical Ventilator 30 96.8 03/01/18 06:50 66 17 30 03/01/18 05:01 62 16 30 03/01/18 04:00 96.6 71 12 110/73 100 Mechanical Ventilator 30 96.6 03/01/18 04:00 30 03/01/18 03:45 64 03/01/18 02:33 56 17 30 03/01/18 01:18 59 16 30 03/01/18 00:00 97.4 66 17 114/52 100 Mechanical Ventilator 30 97.4 02/28/18 23:28 55 02/28/18 23:25 55 17 Mechanical Ventilator 60.0 32 02/28/18 23:04 55 17 30 02/28/18 21:13 63 16 30 02/28/18 20:00 30 02/28/18 20:00 97.4 65 18 146/83 100 Mechanical Ventilator 30 97.4 02/28/18 19:16 64 02/28/18 18:54 62 17 30 Intake and Output 02/28/18 03/01/18 19:00 07:00 Intake Total 970 ml 910 ml Output Total 2600 ml Balance -1630 ml 910 ml Intake Free Water 380 ml 300 ml IV Total 110 ml 110 ml Tube Feeding 480 ml 400 ml Other 100 ml Output Urine Total 1900 ml Stool Total 700 ml # Bowel Movements 3 Objective WDWN trach poor LOC reduced breath sounds bilaterally without rhonchi or wheeze [id number] without MRG NABS nontender no HSM no CC anasarca improved GT nonfocal Laboratory Tests 03/01/18 04:20: Sodium Level 143, Potassium Level 3.9, Chloride Level 108H, Carbon Dioxide Level 25, Anion Gap 10, Blood Urea Nitrogen 56H, Creatinine 0.9, Estimat Glomerular Filtration Rate > 60, Glucose Level 94, Calcium Level 9.4 Current Medications Medications (Trade) Dose Ordered Sig/Aashish Route PRN Reason Start Time Stop Time Status Last Admin Dose Admin Acetaminophen (Tylenol) 650 mg Q4H PRN GT Mild Pain/Temp > 100.5 02/24/18 08:00 03/26/18 07:59 Ascorbic Acid (Vitamin C) 500 mg DAILY GT 02/25/18 09:00 03/26/18 08:59 03/01/18 09:49 Bisacodyl (Dulcolax) 10 mg DAILYPRN PRN RECTAL Constipation 02/24/18 08:00 03/26/18 07:59 Dextrose (Dextrose 50%) 25 ml STAT PRN IV Hypoglycemia 02/24/18 07:45 03/26/18 07:44 Dextrose (Dextrose 50%) 50 ml STAT PRN IV Hypoglycemia 02/24/18 07:45 03/26/18 07:44 02/25/18 06:05 Diphenhydramine HCl (Benadryl) 25 mg Q4HR PRN GT Itching 02/24/18 08:00 03/26/18 07:59 Ferrous Sulfate (Feosol) 330 mg BID NG 02/24/18 18:00 03/26/18 17:59 03/01/18 09:49 Heparin Sodium (Porcine) (Heparin 5000 units/ml) 5,000 units EVERY 12 HOURS SUBQ 02/24/18 21:00 03/26/18 20:59 03/01/18 09:46 Insulin Aspart (NovoLOG) Q6HR SUBQ 02/25/18 00:00 03/26/18 11:29 03/01/18 12:26 Insulin Detemir (Levemir) 12 units BEDTIME SUBQ 02/24/18 21:00 03/26/18 20:59 02/28/18 21:22 Levetiracetam (Keppra) 1,000 mg BID GT 02/24/18 18:00 03/26/18 17:59 03/01/18 09:49 Levofloxacin (Levaquin) 250 mg DAILY ORAL 02/27/18 09:00 03/06/18 08:59 03/01/18 09:49 Levothyroxine Sodium (Synthroid) 50 mcg DAILY@0630 ORAL 02/26/18 06:30 03/28/18 06:29 03/01/18 06:37 Magnesium Hydroxide (Mom) 30 ml DAILYPRN PRN ORAL Constipation 02/24/18 08:00 03/26/18 07:59 Ondansetron HCl (Zofran) 4 mg Q6H PRN GT Nausea & Vomiting 02/24/18 08:00 03/26/18 07:59 Sodium Phosphate (Fleet's Sodium Phosl Enema) 133 ml DAILY PRN RECTAL Constipation 02/24/18 08:00 03/26/18 07:59 Tigecycline 50 mg/ Dextrose 110 ml @ 220 mls/hr EVERY 12 HOURS IVPB 02/27/18 21:00 03/06/18 20:59 03/01/18 09:49 Valproic Acid (Depakene) 750 mg Q8HR NG 02/24/18 14:00 03/26/18 13:59 03/01/18 14:03 Edinson Barton MD March 01, 2018 17:56
--- NOTE | 2018-03-02 12:50 | Discharge Summary ---
Discharge Summary Discharge Summary Discharge Summary DATE OF ADMISSION: 02/24/2018 DATE OF DISCHARGE: 03/01/2018 CONSULTANTS: Dr. Glynn Nunez BRIEF HOSPITAL COURSE: Patient is a 72-year-old female, with history of chronic respiratory failure, toxic encephalopathy, chronic kidney disease, seizure disorder and hypertension. She is on chronic trach and G-tube. She was transferred from halfway facility due to abnormal laboratories. She was noted to have an elevated BUN. She was also noted by nursing staff to have increasing edema to the upper hands. She is a DO NOT RESUSCITATE. On evaluation at ED, blood work confirmed elevated renal function. BUN was 81, creatinine 1.3. Sodium was 135, potassium 3.5, chloride 96. She had low albumin 2.1. She had an EKG done that showed normal sinus rhythm with no acute changes. Urinalysis showed 20-30 WBC with 3+ leukocyte esterase positive, many bacteria. Chest x-ray with no acute disease. She was then admitted for evaluation of sepsis, urinary tract infection acute kidney injury/azotemia. She was given IV hydration. She was started empirically on Levaquin. She was seen by infectious disease specialist. Stool C. difficile was negative. Sacral wound culture showing gram-negative rods. Rectal swab was positive for VRE. Nasal swab was negative for MRSA. Urine culture was growing Proteus and Klebsiella. She was also started on tigecycline. G-tube was noted to be clogged. Dr. Nunez was consulted. G-tube was temporarily repaired, and underwent bedside G-tube replacement on 02/28/2018. She was tolerating feeding well. She has anasarca due to immobilization/low oncotic pressure from hypoalbuminemia. Albumin was low. She was given high-protein nephro tube feeds. Renal ultrasound showed normal right kidney, left kidney not seen. No evidence of hydronephrosis. Renal function improved with hydration. She was given IV water. TSH was 6.5. She was given thyroid supplementation. She came in with sacral wound. She was given local wound care. She was referred back to [facility] , to continue antibiotic. She was discharged back with isolation colonized. FINAL DIAGNOSES: Sepsis MDR Proteus and Klebsiella UTI Chronic respiratory failure on trach and PEG Functional quadriplegia Acute renal failure Anasarca due to hypoalbuminemia Possible cellulitis Chronic encephalopathy Solitary kidney Dehydration Anemia Hypothyroidism Hypokalemia Clogged G-tube, status post G-tube change Dysphagia on G-tube Morbid obesity DISPOSITION: Patient was discharged to [facility]. DISCHARGE MEDICATIONS: Refer to Discharge Medication List. Continue Tygacil 50 mg IV every 12 hours for 2 days, Levaquin 250 mg G-tube daily 2 days. I have been assigned to dictate discharge summary on this account, and I was not involved in the patient's management. Telma Palacio NP March 02, 2018 12:50
== END 2018-03-01 18:20 | DRG 870 ==
LOC: EDBD 23:03 → EMR 23:31 → 2W 02-24 00:35 → EDBEDREQ 02-24 01:34 → 2W 02-24 02:52
PROC: 5A1955Z Respiratory Ventilation, Greater than 96 Consecutive Hours (ICD-10-PCS; principal; 2018-02-24)
PROC: 0D20XUZ Change Feeding Device in Upper Intestinal Tract, External Approach (ICD-10-PCS; 2018-02-28)
DX: A41.9 Sepsis, unspecified organism (principal); R53.2 Functional quadriplegia; N39.0 Urinary tract infection, site not specified; J96.10 Chronic respiratory failure, unspecified whether with hypoxia or hypercapnia; Z99.11 Dependence on respirator [ventilator] status; G93.1 Anoxic brain damage, not elsewhere classified; N17.9 Acute kidney failure, unspecified; L03.119 Cellulitis of unspecified part of limb; D64.9 Anemia, unspecified; Z93.0 Tracheostomy status; K94.29 Other complications of gastrostomy; G40.909 Epilepsy, unspecified, not intractable, without status epilepticus; Z74.01 Bed confinement status; E86.0 Dehydration; Z66 Do not resuscitate; E87.6 Hypokalemia; E03.9 Hypothyroidism, unspecified; E66.01 Morbid (severe) obesity due to excess calories; Z68.37 Body mass index [BMI] 37.0-37.9, adult; E88.09 Other disorders of plasma-protein metabolism, not elsewhere classified
CPT/HCPCS: 36415; 71045; 76770; 80048; 80053; 80299; 81003; 82962; 83605; 84443; 84484; 85025; 87040; 87070; 87081; 87086; 87181; 87205; 87324; 93005; 94002; 94003; 94664; 99285; J1815; J8499; S5561